=== PATIENT | male | born 1995 | race Caucasian/White ===

== ENCOUNTER 2019-07-26 12:24 | Emergency (ER) | payer SELFPAY ==
[2019-07-26 12:28] VITALS: BP 148/81; PULSE 95; RESP 20; TEMP 36.6; O2SAT 94; BMI 21.1
[2019-07-26 12:46] VITALS: BP 127/77; PULSE 74; RESP 16; TEMP 36.9; O2SAT 98; BMI 23.1
--- NOTE | 2019-07-26 12:57 | ED_ITS ---
Entered by Dacia Sahni, acting as scribe for HPI - Male Genitourinary General Chief complaint: Urogenital-Male Stated complaint: urinating blood Time Seen by Provider: 07/26/19 12:57 Source: patient Mode of arrival: ambulatory History of Present Illness HPI Narrative: 23 yo m came to the er pov with family fro blood in urine. Onset was this morning. Pt states that when he is just urinating straight blood. Pt is denying any pain while urinating at this time. Onset (ago): hour(s) (0900AM) Duration: constant Radiation: left flank Severity: mild Quality: other (no pain) Relieving factors: none Exacerbating factors: none Context: known STD exposure Associated symptoms: Reports hematuria Related Data Sexually active: Yes Home Medications Medication Instructions Recorded Confirmed No Known Home Medications 07/26/19 07/26/19 Allergies Allergy/AdvReac Type Severity Reaction Status Date / Time codeine Allergy ADR-Nausea Verified 07/26/19 12:53 tramadol [From Ultram] Allergy ALGY-Hives Verified 07/26/19 12:53 Discharge Plan Discharge Patient Disposition: Left Against Medical Advice Clinical Impression: Urethritis Condition: Stable Prescriptions: No Action No Known Home Medications RF: 0 Referrals: NOT ON FILE,DOCTOR [Primary Care Provider] - Discharge Date/Time: 07/26/19 14:13 MDM - Male Lab Data Result diagrams: 07/26/19 13:37 07/26/19 13:37 Labs: Lab Results 07/26/19 07/26/19 07/26/19 Range/Units 13:37 13:37 13:45 WBC 7.4 (4.0-10.0) 10^3/uL RBC 4.96 (4.1-5.3) 10^6/uL Hgb 14.3 (11.7-16.6) g/dL Hct 43.1 (42.0-52.0) % MCV 86.9 (80-94) fL MCH 28.8 (28.0-34.0) pg MCHC 33.2 (30.0-36.0) g/dL RDW 12.2 (12.1-15.1) % Plt Count 298 (130-400) 10^3/cmm MPV 9.1 (7.4-10.4) fL Neut % (Auto) 62.6 % Lymph % (Auto) 23.0 % [place] % (Auto) 12.5 % Eos % (Auto) 1.1 % Baso % (Auto) 0.5 % Neut # (Auto) 4.6 (1.8-7.7) 10^3/uL Lymph # (Auto) 1.7 (0.8-4.8) 10^3/uL [place] # (Auto) 0.9 (0.2-0.9) 10^3/uL Eos # (Auto) 0.1 (0.0-0.8) 10^3/uL Baso # (Auto) 0.0 (0.0-0.1) 10^3/uL Nucleated RBC % (auto) 0 % Nucleated RBCs # 0.0 /100WBC Sodium 138 (136-145) mmol/L Potassium 4.0 (3.5-5.1) mmol/L Chloride 99 (98-107) mmol/L Carbon Dioxide 28 (22-29) mmol/L Anion Gap 15.0 (5-19) BUN 10 (6-20) mg/dL Creatinine 1.0 (0.7-1.2) mg/dL GFR Calculation 91.8 (90-130) mL/min Glucose 81 (74-109) mg/dL Calcium 9.7 (8.6-10.0) mg/Dl Total Bilirubin 0.3 (0.15-1.2) mg/dL AST 18 (0-40) U/L ALT 15 (0-41) U/L Alkaline Phosphatase 92 (40-130) IU/L Total Protein 7.4 (6.6-8.7) g/dL Albumin 4.9 (3.5-5.2) g/dL Globulin 2.5 (1.3-4.6) g/dL Urine Color Straw (Yellow) Urine Appearance Clear (CLEAR) Urine pH 7.0 (5-7) Ur Specific [place] 1.005 (1.005-1.030) Urine Protein Neg (Negative) Urine Glucose (UA) Norm (Normal) Urine Ketones Negative (Negative) Urine Occult Blood Neg (Negative) Urine Nitrate Negative (Negative) Urine Bilirubin Neg (Negative) Urine Urobilinogen Norm (Negative) mg/dL Ur Leukocyte Esterase Negative (Negative) Urine RBC None (0-2) /hpf Urine WBC None (0-5) /hpf Ur Squamous Epith Cells Rare (0-5) Urine Bacteria Trace (NONE) The documentation recorded by the luz elenaibBora hoff Stephanie Lyn, accurately reflects the service I personally performed and the decisions made by , Gumaro Lanza, Jul 26, 2019 12:24
[2019-07-26 13:46] LABS: Basophils % 0.5 %; Eosinophils # 0.1 10^3/uL (0.0-0.8); Eosinophils % 1.1 %; Hematocrit 43.1 % (42.0-52.0); Hemoglobin 14.3 g/dL (11.7-16.6); Lymphocytes # 1.7 10^3/uL (0.8-4.8); Mean Corpuscular HGB Conc 33.2 g/dL (30.0-36.0); Mean Corpuscular Hemoglobin 28.8 pg (28.0-34.0); Mean Corpuscular Volume 86.9 fL (80-94); Mean Platelet Volume 9.1 fL (7.4-10.4); Monocytes # 0.9 10^3/uL (0.2-0.9); Monocytes % 12.5 %; Neutrophils # 4.6 10^3/uL (1.8-7.7); Neutrophils % 62.6 %; Nucleated Red Blood Cells % 0 %; Platelet Count 298 10^3/cmm (130-400); Red Blood Count 4.96 10^6/uL (4.1-5.3); Red Cell Distribution Width 12.2 % (12.1-15.1); White Blood Count 7.4 10^3/uL (4.0-10.0)
[2019-07-26 13:57] LABS: Add RBC Morph No
[2019-07-26 14:07] LABS: Alanine Aminotransferase 15 U/L (0-41); Albumin Level 4.9 g/dL (3.5-5.2); Alkaline Phosphatase 92 IU/L (40-130); Aspartate Amino Transferase 18 U/L (0-40); Blood Urea Nitrogen 10 mg/dL (6-20); Calcium 9.7 mg/Dl (8.6-10.0); Carbon Dioxide 28 mmol/L (22-29); Chloride 99 mmol/L (98-107); Globulin 2.5 g/dL (1.3-4.6); Glomerular Filtration Rate 91.8 mL/min (90-130); Glucose 81 mg/dL (74-109); Sodium 138 mmol/L (136-145); Total Bilirubin 0.3 mg/dL (0.15-1.2); Total Protein 7.4 g/dL (6.6-8.7)
[2019-07-26 14:12] LABS: Urine Appearance Clear (CLEAR); Urine Color Straw (Yellow)
[2019-07-26 14:13] LABS: Bilirubin Urine Neg (Negative); Blood Urine Neg (Negative); Glucose Urine UA Norm (Normal); Ketones Urine Negative (Negative); Leukocyte Esterase Urine Negative (Negative); Nitrate Urine Negative (Negative); Protein Urine Neg (Negative); Specific Gravity, Urine 1.005 (1.005-1.030); Urobilinogen Urine Norm (Negative)
[2019-07-26 14:19] LABS: Add Urine Culture? No; Bacteria Urine TRACE; Squamous Epithelial Cell Urine RARE (0-5)
--- NOTE | 2019-07-26 15:05 | W.ED.MALEGU ---
HPI - Male Genitourinary General Chief complaint: Urogenital-Male Stated complaint: urinating blood Time Seen by Provider: 07/26/19 12:57 Source: patient Mode of arrival: ambulatory History of Present Illness Severity: mild Quality: other (no pain) Relieving factors: none Exacerbating factors: none Related Data Sexually active: Yes Home Medications Medication Instructions Recorded Confirmed No Known Home Medications 07/26/19 07/26/19 Allergies Allergy/AdvReac Type Severity Reaction Status Date / Time codeine Allergy ADR-Nausea Verified 07/26/19 12:53 tramadol [From Ultram] Allergy ALGY-Hives Verified 07/26/19 12:53 Discharge Plan Discharge Patient Disposition: Left Against Medical Advice Clinical Impression: Urethritis Condition: Stable Prescriptions: No Action No Known Home Medications RF: 0 Referrals: NOT ON FILE,DOCTOR [Primary Care Provider] - Interventions: ED Discharge Assessment Last Done: 07/26/19 14:10 Discharge Date/Time: 07/26/19 14:13 MDM - Male Lab Data Result diagrams: 07/26/19 13:37 07/26/19 13:37 Labs: Lab Results 07/26/19 07/26/19 07/26/19 Range/Units 13:37 13:37 13:45 WBC 7.4 (4.0-10.0) 10^3/uL RBC 4.96 (4.1-5.3) 10^6/uL Hgb 14.3 (11.7-16.6) g/dL Hct 43.1 (42.0-52.0) % MCV 86.9 (80-94) fL MCH 28.8 (28.0-34.0) pg MCHC 33.2 (30.0-36.0) g/dL RDW 12.2 (12.1-15.1) % Plt Count 298 (130-400) 10^3/cmm MPV 9.1 (7.4-10.4) fL Neut % (Auto) 62.6 % Lymph % (Auto) 23.0 % [place] % (Auto) 12.5 % Eos % (Auto) 1.1 % Baso % (Auto) 0.5 % Neut # (Auto) 4.6 (1.8-7.7) 10^3/uL Lymph # (Auto) 1.7 (0.8-4.8) 10^3/uL [place] # (Auto) 0.9 (0.2-0.9) 10^3/uL Eos # (Auto) 0.1 (0.0-0.8) 10^3/uL Baso # (Auto) 0.0 (0.0-0.1) 10^3/uL Nucleated RBC % (auto) 0 % Nucleated RBCs # 0.0 /100WBC Sodium 138 (136-145) mmol/L Potassium 4.0 (3.5-5.1) mmol/L Chloride 99 (98-107) mmol/L Carbon Dioxide 28 (22-29) mmol/L Anion Gap 15.0 (5-19) BUN 10 (6-20) mg/dL Creatinine 1.0 (0.7-1.2) mg/dL GFR Calculation 91.8 (90-130) mL/min Glucose 81 (74-109) mg/dL Calcium 9.7 (8.6-10.0) mg/Dl Total Bilirubin 0.3 (0.15-1.2) mg/dL AST 18 (0-40) U/L ALT 15 (0-41) U/L Alkaline Phosphatase 92 (40-130) IU/L Total Protein 7.4 (6.6-8.7) g/dL Albumin 4.9 (3.5-5.2) g/dL Globulin 2.5 (1.3-4.6) g/dL Urine Color Straw (Yellow) Urine Appearance Clear (CLEAR) Urine pH 7.0 (5-7) Ur Specific [place] 1.005 (1.005-1.030) Urine Protein Neg (Negative) Urine Glucose (UA) Norm (Normal) Urine Ketones Negative (Negative) Urine Occult Blood Neg (Negative) Urine Nitrate Negative (Negative) Urine Bilirubin Neg (Negative) Urine Urobilinogen Norm (Negative) mg/dL Ur Leukocyte Esterase Negative (Negative) Urine RBC None (0-2) /hpf Urine WBC None (0-5) /hpf Ur Squamous Epith Cells Rare (0-5) Urine Bacteria Trace (NONE)
== END 2019-07-26 14:13 | disposition left against medical advice (07) ==
PROVIDERS: Emergency Provider Family Medicine
DX: N34.2 Other urethritis (principal); Z53.21 Procedure and treatment not carried out due to patient leaving prior to being seen by health care provider
CPT/HCPCS: 80053; 81001; 85025; 99282

== ENCOUNTER 2020-09-05 02:58 | Emergency (ER) | payer SELFPAY ==
[2020-09-05] VITALS (7 sets, daily range): BP systolic 111–138; BP diastolic 61–86; PULSE 72–106; RESP 18–24; TEMP 36.7; O2SAT 96–100; BMI 27.4
--- NOTE | 2020-09-05 04:02 | CTR_ITS ---
PROCEDURE INFORMATION: Exam: CT Abdomen And Pelvis With Contrast Exam date and time: 09/05/2020 4:09 AM Age: 24 years old Clinical indication: Nausea and vomiting; Abdominal pain; Generalized; Prior surgery; Surgery type: Appy. Inguinal hernia. ; Patient HX: Diffuse abd pain with n/v. TECHNIQUE: Imaging protocol: Computed tomography of the abdomen and pelvis with contrast. Radiation optimization: All CT scans at this facility use at least one of these dose optimization techniques: automated exposure control; mA and/or kV adjustment per patient size (includes targeted exams where dose is matched to clinical indication); or iterative reconstruction. Contrast material: VISI 320; Contrast volume: 95 ml; Contrast route: INTRAVENOUS (IV); COMPARISON: No relevant prior studies available. RADIATION DOSE METRICS: Total DLP (mGy-cm): 533.27 FINDINGS: Liver: Normal. No mass. Gallbladder and bile ducts: Normal. No calcified stones. No ductal dilation. Pancreas: Normal. No ductal dilation. Spleen: Normal. No splenomegaly. Adrenal glands: Normal. No mass. Kidneys and ureters: Normal. No hydronephrosis. Stomach and bowel: Distended colon is seen containing fluid content. No small bowel dilatation is present. No obstruction. No mucosal thickening. Appendix: The appendix is surgically absent. Intraperitoneal space: Unremarkable. No free air. No significant fluid collection. Vasculature: Unremarkable. No abdominal aortic aneurysm. Lymph nodes: Unremarkable. No enlarged lymph nodes. Urinary bladder: Unremarkable as visualized. Reproductive: Unremarkable as visualized. Bones/joints: Unremarkable. No acute fracture. Soft tissues: Unremarkable. CT/CT abdomen pelvis w con* [id number] IMPRESSION: Distended colon containing fluid content, usually seen with diarrheal conditions. No wall thickening or inflammation is identified. Radiation Dose CTDIVOL = (mGy): DLP = 533.27 (mGy-cm)
[2020-09-05] MEDS: sodium chloride 0.9% 1,000 ML 999 ML IV (04:10)
[2020-09-05] MEDS: iohexol 300 mg/mL 100 mL Btl IV (04:19)
[2020-09-05 04:30] LABS: Basophils % 0.3 %; Eosinophils # 0.1 10^3/uL (0.0-0.8); Eosinophils % 0.8 %; Hematocrit 44.3 % (42.0-52.0); Hemoglobin 14.9 g/dL (11.7-16.6); Lymphocytes # 1.6 10^3/uL (0.8-4.8); Mean Corpuscular HGB Conc 33.6 g/dL (30.0-36.0); Mean Corpuscular Volume 86.4 fL (80-94); Mean Platelet Volume 11.2 fL (7.4-10.4); Monocytes # 1.3 10^3/uL (0.2-0.9); Monocytes % 9.4 %; Neutrophils # 11.07 10^3/uL (1.8-7.7); Neutrophils % 78.2 %; Nucleated Red Blood Cells % 0 %; Platelet Count 241 10^3/cmm (130-400); Red Blood Count 5.13 10^6/uL (4.1-5.3); Red Cell Distribution Width 12.3 % (12.1-15.1); White Blood Count 14.2 10^3/uL (4.0-10.0)
[2020-09-05 04:42] LABS: Alanine Aminotransferase 11 U/L (0-41); Albumin Level 4.2 g/dL (3.5-5.2); Alcohol Level < 10 mg/dL (0-10); Alkaline Phosphatase 95 IU/L (40-130); Blood Urea Nitrogen 16 mg/dL (6-20); C Reactive Protein 39.8 mg/L (0.0-4.9); Calcium 8.8 mg/dL (8.5-10.5); Carbon Dioxide 27 mmol/L (22-29); Chloride 101 mmol/L (98-107); Creatine Phosphokinase 86 U/L (39-308); Globulin 3.3 g/dL (1.3-4.6); Glomerular Filtration Rate 102.8 mL/min (90-130); Glucose 104 mg/dL (65-115); Lipase 18 U/L (13-60); Magnesium 1.9 mg/dL (1.7-2.3); Osmolality Calculated 283 mOsm/kg (285-295); Sodium 136 mmol/L (136-145); Total Bilirubin 0.2 mg/dL (0.15-1.2); Total Protein 7.5 g/dL (6.6-8.7)
[2020-09-05 04:43] LABS: Aspartate Amino Transferase 17 U/L (0-40); Lactate (Lactic Acid level) 1.2 mmol/L (0.5-2.2)
--- NOTE | 2020-09-05 05:41 | ED_ITS ---
HPI - Abdominal Pain General: Chief Complaint: Abdominal Pain Stated Complaint: n/v/d Time Seen by Provider: 09/05/20 03:00 Source: patient Mode of arrival: ambulatory History of Present Illness: HPI narrative: 24-year-old male complaining of abdominal pain since yesterday morning, mainly on the right side. Associated with nausea, vomiting and diarrhea. Currently rating the pain is 8/10, crampy, no bloody stools. No fever. Able to tolerate some clears. Denies any alcohol or drug use. No sick contacts. No recent travel. MD elicited complaint: abdominal pain Pain Consistency: colicky Location: LUQ, RUQ and RLQ Severity: moderate Quality: cramping and aching Exacerbating factors: eating Relieving factors: bowel movement Context: possible food poisoning Review of Systems General: Reports: 10 or more systems reviewed and unremarkable except in HPI and below PFSH ED PFSH: Social History (Updated 01/30/20 @ 15:00 by Marky Marroquin LPN) Smoking and tobacco status: current every day smoker cigarettes Packs smoked per day: 1 Years cigarettes smoked: 10 and e-cigarettes E-Cigarette Details: e- cigarette and with nicotine E-cig/vape details: Use when regular cigarettes are not available. Quit status (tobacco): not considering quitting Second hand smoke exposure: Yes Smoking risk assessment/counseling performed?: No Current gender identity: Male Physical Exam Const: COMMON NORMALS: average body habitus and patient oriented x3 GENERAL APPEARANCE: cooperative, anxious and ill appearing HENMT: COMMON NORMALS: normocephalic and atraumatic HEAD & SCALP: normocephalic and atraumatic FACE & SINUS: normal facial exam and face symmetric MOUTH: other (Dry mucous membranes) TEETH & GINGIVA: Yes other Eye: COMMON NORMALS: Equal, round and reactive pupils present, EOMs intact bilaterally and negative for no scleral icterus PUPIL: Yes Equal, round and reactive pupils present Resp: COMMON NORMALS: normal respiratory effort and No retractions EFFORT & INSPECTION: Yes able to speak in complete sentences GI: COMMON NORMALS: Soft to palpation INSPECTION: Yes normal to inspection AUSCULTATION: Yes Hyperactive bowel sounds present PALPATION: Yes Soft to palpation, Yes Tenderness to palpation present (GI) Details: RLQ, LUQ and RUQ, No Guarding due to palpation present (GI), No Rigid due to palpation, No Hepatosplenomegaly present and No Ascites present : COMMON NORMALS: Yes no CVA tenderness BLADDER/KIDNEY EXAM: Yes no CVA tenderness MALE GROIN/PERINEUM EXAM: No edema Back/Pelvis: COMMON NORMALS: no CVA tenderness Extremity: COMMON NORMALS: normal to inspection, full ROM and capillary refill normal Neuro: COMMON NORMALS: patient oriented x3, CN's II-XII intact bilaterally and moves all extremities Skin: COMMON NORMALS: no rashes or lesions noted and no wounds GENERAL SKIN EXAM: no rashes or lesions noted Course Vital Signs: Vital signs: Vital Signs Temperature 98.1 F 09/05/20 03:04 Pulse Rate 95 09/05/20 04:26 Respiratory Rate 18 09/05/20 04:26 Blood Pressure 118/61 09/05/20 06:33 Pulse Oximetry 96 09/05/20 06:33 MDM - Abdominal Pain MDM Narrative: Medical decision making narrative: 24-year-old male with acute gastroenteritis Vital signs stable, nontoxic-appearing Mild leukocytosis, otherwise lab work without acute abnormalities. Lactic acid 1.2. Lipase normal. Treated with IV fluid, Zofran, Levsin, had good symptom relief, tolerating clears, at the time of discharge home was feeling and looking much better. Instructed to return immediately if he started running fever, had recurrent vomiting and could not keep down liquids, develop worsening pain, or any other Differential Diagnosis: Differential diagnosis abdominal pain: Likely abdominal pain, acute appendicitis, diverticulitis, gastroenteritis, pancreatitis and small bowel obstruction Medical Records: Attestation: I reviewed the patient's medical records. Lab Data: Attestation: I reviewed the patient's lab results. Labs: Lab Results 09/05/20 09/05/20 09/05/20 Range/Units 03:12 03:12 03:12 WBC 14.2 H (4.0-10.0) 10^3/ uL RBC 5.13 (4.1-5.3) 10^6/u L Hgb 14.9 (11.7-16.6) g/dL Hct 44.3 (42.0-52.0) % MCV 86.4 (80-94) fL MCH 29.0 (28.0-34.0) pg MCHC 33.6 (30.0-36.0) g/dL RDW 12.3 (12.1-15.1) % Plt Count 241 (130-400) 10^3/c mm MPV 11.2 H (7.4-10.4) fL Neut % (Auto) 78.2 % Lymph % (Auto) 11.0 % [place] % (Auto) 9.4 % Eos % (Auto) 0.8 % Baso % (Auto) 0.3 % Neut # (Auto) 11.07 H (1.8-7.7) 10^3/u L Lymph # (Auto) 1.6 (0.8-4.8) 10^3/u L [place] # (Auto) 1.3 H (0.2-0.9) 10^3/u L Eos # (Auto) 0.1 (0.0-0.8) 10^3/u L Baso # (Auto) 0.0 (0.0-0.1) 10^3/u L Nucleated RBC % (a uto) 0 % Nucleated RBCs # 0.0 /100WBC Sodium 136 (136-145) mmol/L Potassium 4.0 (3.5-5.1) mmol/L Chloride 101 (98-107) mmol/L Carbon Dioxide 27 (22-29) mmol/L Anion Gap 12.0 (5-19) BUN 16 (6-20) mg/dL Creatinine 0.9 (0.7-1.2) mg/dL GFR Calculation 102.8 (90-130) mL/min Glucose 104 (65-115) mg/dL Calculated Osmolal ity 283 L (285-295) mOsm/k g Lactate 1.2 (0.5-2.2) mmol/L Calcium 8.8 (8.5-10.5) mg/dL Magnesium 1.9 (1.7-2.3) mg/dL Total Bilirubin 0.2 (0.15-1.2) mg/dL AST 17 (0-40) U/L ALT 11 (0-41) U/L Alkaline Phosphata se 95 (40-130) IU/L Creatine Kinase 86 (39-308) U/L C-Reactive Protein 39.8 H (0.0-4.9) mg/L Total Protein 7.5 (6.6-8.7) g/dL Albumin 4.2 (3.5-5.2) g/dL Globulin 3.3 (1.3-4.6) g/dL Lipase 18 (13-60) U/L Urine Color (Yellow) Urine Appearance (CLEAR) Urine pH (5-7) Ur Specific Gravit y (1.005-1.030) Urine Protein (Negative) Urine Glucose (UA) (Normal) Urine Ketones (Negative) Urine Blood (Negative) Urine Nitrate (Negative) Urine Bilirubin (Negative) Urine Urobilinogen (Negative) mg/dL Ur Leukocyte Brgiid ase (Negative) Urine RBC (0-2) /hpf Urine WBC (0-5) /hpf Ur Squamous Epith Cells (0-5) /hpf Amorphous Sediment Urine Bacteria (NONE) /hpf Ethyl Alcohol < 10 (0-10) mg/dL 09/05/20 Range/Units 06:32 WBC (4.0-10.0) 10^3/ uL RBC (4.1-5.3) 10^6/u L Hgb (11.7-16.6) g/dL Hct (42.0-52.0) % MCV (80-94) fL MCH (28.0-34.0) pg MCHC (30.0-36.0) g/dL RDW (12.1-15.1) % Plt Count (130-400) 10^3/c mm MPV (7.4-10.4) fL Neut % (Auto) % Lymph % (Auto) % [place] % (Auto) % Eos % (Auto) % Baso % (Auto) % Neut # (Auto) (1.8-7.7) 10^3/u L Lymph # (Auto) (0.8-4.8) 10^3/u L [place] # (Auto) (0.2-0.9) 10^3/u L Eos # (Auto) (0.0-0.8) 10^3/u L Baso # (Auto) (0.0-0.1) 10^3/u L Nucleated RBC % (a uto) % Nucleated RBCs # /100WBC Sodium (136-145) mmol/L Potassium (3.5-5.1) mmol/L Chloride (98-107) mmol/L Carbon Dioxide (22-29) mmol/L Anion Gap (5-19) BUN (6-20) mg/dL Creatinine (0.7-1.2) mg/dL GFR Calculation (90-130) mL/min Glucose (65-115) mg/dL Calculated Osmolal ity (285-295) mOsm/k g Lactate (0.5-2.2) mmol/L Calcium (8.5-10.5) mg/dL Magnesium (1.7-2.3) mg/dL Total Bilirubin (0.15-1.2) mg/dL AST (0-40) U/L ALT (0-41) U/L Alkaline Phosphata se (40-130) IU/L Creatine Kinase (39-308) U/L C-Reactive Protein (0.0-4.9) mg/L Total Protein (6.6-8.7) g/dL Albumin (3.5-5.2) g/dL Globulin (1.3-4.6) g/dL Lipase (13-60) U/L Urine Color Yellow (Yellow) Urine Appearance Clear (CLEAR) Urine pH 5 (5-7) Ur Specific Gravit y 1.005 (1.005-1.030) Urine Protein 1+ H (Negative) Urine Glucose (UA) Norm (Normal) Urine Ketones Negative (Negative) Urine Blood Neg (Negative) Urine Nitrate Negative (Negative) Urine Bilirubin 1+ H (Negative) Urine Urobilinogen Norm (Negative) mg/dL Ur Leukocyte Brigid ase Negative (Negative) Urine RBC None (0-2) /hpf Urine WBC None (0-5) /hpf Ur Squamous Epith Cells None (0-5) /hpf Amorphous Sediment Not Reportable Urine Bacteria Trace (NONE) /hpf Ethyl Alcohol (0-10) mg/dL Discharge Plan Discharge Patient Disposition: Home Clinical Impression: Gastroenteritis, Abdominal pain Condition: Stable Discharge Orders: Discharge ED (Routine); Ordered 09/05/20 Ordered By: Shahida Maxwell Discharge Diet: Advance as tolerated Discharge Activity: Increase activity as tolerated Patient Instructions: Gastroenteritis (ED), Abdominal Pain (ED) Activity Restrictions/Additional Instructions: Rest, try to drink small amounts of fluid frequently. Stop using drugs, especially marijuana and alcohol, as they both can cause severe stomach pain. Return immediately to the ER if you develop worsening stomach pain, if you cannot keep down liquids, you develop a fever, or have any other sudden changes. Try and schedule follow-up appoint with your primary care doctor in the next 2 to 3 days for recheck. Coding Level of Care Code ED Distribution [facility] Manager for Joann Lin
[2020-09-05] MEDS: ondansetron 2 mg/ML SDV 2 mL 4 MG IVP (05:48)
[2020-09-05] MEDS: hyoscyamine ODT 0.125 mg Tablet 0.25 MG PO (05:49)
[2020-09-05] MEDS: sodium chloride 0.9% 1,000 ML 30 ML IV (05:54)
--- NOTE | 2020-09-05 07:36 | PC.NURSE ---
nurse in room to discharge patient and pt has eloped prior to discharge. pt left with IV still intact. Police have been notified.
[2020-09-05 07:39] LABS: Add Urine Microscopic? YES; Bacteria Urine TRACE /hpf; Bilirubin Urine 1+ (Negative); Blood Urine Neg (Negative); Glucose Urine UA Norm (Normal); Ketones Urine Negative (Negative); Leukocyte Esterase Urine Negative (Negative); Nitrate Urine Negative (Negative); Protein Urine 1+ (Negative); Specific Gravity, Urine 1.005 (1.005-1.030); Urine Appearance Clear (CLEAR); Urine Color Yellow (Yellow); Urobilinogen Urine Norm (Negative); pH Urine 5 (5-7)
--- NOTE | 2020-09-05 08:33 | PC.NURSE ---
Patient returned IV removed at this time.
== END 2020-09-05 07:43 | disposition home or self-care (01) ==
PROVIDERS: Emergency Provider Family Medicine
DX: K52.9 Noninfective gastroenteritis and colitis, unspecified (principal); F17.210 Nicotine dependence, cigarettes, uncomplicated
CPT/HCPCS: 74177; 80053; 80307; 81001; 82550; 83605; 83690; 83735; 85025; 86140; 96361; 96374; 99283; J2405; J7030; Q9967

== ENCOUNTER 2021-05-09 04:13 | Emergency (ER) | payer SELFPAY ==
--- NOTE | 2021-05-09 04:15 | ED_ITS ---
Documented by User: Marky Rhodes MD 05/10/21 19:16 HPI - Fever General: Chief Complaint: Upper Respiratory Infection Stated Complaint: sick, high fever Time Seen by Provider: 05/09/21 04:15 History of Present Illness: HPI Narrative: Mr. Coe is a 25-year-old gentleman with significant past medical history of substance abuse who presents emergency department due to generalized malaise. 4 days ago he had subacute onset of mild shortness of breath, fevers, headache, left-sided chest pain, and fatigue. Since onset the symptoms have persisted. Overall the course has remained about the same. Intensity is moderate. No specific exacerbating or alleviating factors. He denies sick contacts. He has not been vaccinated against Covid. He also notes an episode of hematuria. Review of Systems General: Reports: 10 or more systems reviewed and unremarkable except in HPI and below PFSH ED PFSH: Social History Smoking and tobacco status: current every day smoker cigarettes Packs smoked per day: 1 Years cigarettes smoked: 10 and e-cigarettes E-Cigarette Details: e- cigarette and with nicotine E-cig/vape details: Use when regular cigarettes are not available. Quit status (tobacco): not considering quitting Second hand smoke exposure: Yes Smoking risk assessment/counseling performed?: No Current gender identity: Male Physical Exam Narrative: EXAM NARRATIVE: GENERAL/CONSTITUTIONAL -mildly ill-appearing. No acute distress. Eyes - PERRL, no conjunctival injection ENMT - Atraumatic external nose and ears. Moist mucous membranes NECK - supple. trachea midline CARDIOVASCULAR -tachycardic rate and regular RESPIRATORY -coarse to auscultation bilaterally. ABDOMEN/GI - Nontender/Nondistended. MSK - Extremities without obvious deformity or tenderness to palpation SKIN - Warm, Dry NEURO - alert and appropriately oriented. Moves all extremities equally. Course ED course: - Patient was seen and evaluated by me at bedside - Patient placed on cardiac monitors, IV access obtained - Initial evaluation notable for mildly ill appearance, mild tachycardia. -Symptom treatment ordered - Labs notable for no leukocytosis, procalcitonin negative, CRP elevated. - Imaging notable for no lobar consolidation -Urinalysis pending. Patient care signed out to Dr. Womack pending urinalysis given reported hematuria and likely discharge. Unfortunately the patient declined Covid testing, symptoms consistent with viral illness. Vital Signs: Vital signs: Vital Signs Temperature 98.6 F 05/09/21 04:33 Pulse Rate 95 05/09/21 04:37 Respiratory Rate 18 05/09/21 04:37 Blood Pressure 133/85 05/09/21 04:37 Pulse Oximetry 98 05/09/21 04:33 MDM - Fever Medical Records: Attestation: I reviewed the patient's medical records. Lab Data: Attestation: I reviewed the patient's lab results. Labs: Lab Results 05/09/21 05/09/21 05:20 05:20 WBC 9.5 10^3/uL 10^3/ uL (4.0-10.0) RBC 4.73 10^6/uL 10^6 /uL (4.1-5.3) Hgb 13.8 g/dL g/dL (11.7-16.6) Hct 39.6 % L % (42.0-52.0) MCV 83.7 fl fl (80-94) MCH 29.2 pg pg (28.0-34.0) MCHC 34.8 g/dL g/dL (30.0-36.0) RDW 12.0 % L % (12.1-15.1) Plt Count 243 10^3/cmm 10^3 /cmm (130-400) MPV 9.4 fL fL (7.4-10.4) Neut % (Auto) 72.5 % % Lymph % (Auto) 15.1 % % Cherry % (Auto) 11.3 % % Eos % (Auto) 0.6 % % Baso % (Auto) 0.3 % % Neut # (Auto) 6.89 10^3/uL 10^3 /uL (1.8-7.7) Lymph # (Auto) 1.4 10^3/uL 10^3/ uL (0.8-4.8) Cherry # (Auto) 1.1 10^3/uL H 10^ 3/uL (0.2-0.9) Eos # (Auto) 0.1 10^3/uL 10^3/ uL (0.0-0.8) Baso # (Auto) 0.0 10^3/uL 10^3/ uL (0.0-0.1) Nucleated RBC % (a uto) 0 % % Nucleated RBCs # 0.0 /100WBC /100W BC Sodium 135 mmol/L L mmol /L (136-145) Potassium 4.0 mmol/L mmol/L (3.5-5.1) Chloride 100 mmol/L mmol/L (98-107) Carbon Dioxide 25 mmol/L mmol/L (22-29) Anion Gap 14.0 (5-19) BUN 11 mg/dL mg/dL (6-20) Creatinine 0.8 mg/dL mg/dL (0.7-1.2) GFR Calculation 116.9 mL/min mL/m in (90-130) Glucose 103 mg/dL mg/dL (65-115) Calculated Osmolal ity 280 mOsm/kg L mOs m/kg (285-295) Calcium 8.5 mg/dL mg/dL (8.5-10.5) C-Reactive Protein 41.3 mg/L H mg/L (0.0-4.9) Procalcitonin 0.09 ng/mL ng/mL (0-0.5) EKG Data^: EKG 1: Attestation: I personally reviewed and interpreted this EKG as follows: EKG interpretation date: 05/09/21 EKG interpretation time: 05:45 Interpretation: Twelve-lead EKG shows a regular rhythm at a rate of 89. HI interval 139, QRS duration 98, QTc 378. Normal axis. Interpretation: Sinus rhythm. Discharge Plan Discharge Patient Disposition: Left Against Medical Advice Clinical Impression: Acute viral syndrome, Abdominal pain Condition: Stable Discharge Diet: Clear Liquid Discharge Activity: Resume usual activity Patient Instructions: Viral Syndrome (ED), Abdominal Pain (ED) Activity Restrictions/Additional Instructions: Return to the emergency room if your symptoms worsen. We are unable to fully fully evaluate your symptoms because you did chose to decline some of the recommended testing. If at any point you wish to reconsider and would like to have the testing completed you are welcome to return at any time. Sign Out Sign Out Data: Patient Sign Out occurred on 05/09/21 at 07:28. Patient's care was discussed, and care was transferred from to Noah Womack DO. Coding Level of Care Code [facility] Nurse for g Fwd Exam Comprehensive Documented by User: Noah Womack DO 05/09/21 07:57 HPI - Fever General: Chief Complaint: Upper Respiratory Infection Stated Complaint: sick, high fever Time Seen by Provider: 05/09/21 04:15 History of Present Illness: HPI Narrative: 25-year-old male presents to the emergency room complaining of fatigue cough myalgias mild shortness of breath for the last 4 days. He also has a left upper quadrant abdominal pain. He ought also mention to Dr. Willis when he was seen initially that he had some hematuria. He has had temps during the for those 4 days as well up to 103 at times. He has not previously been known to have Covid nor is he been vaccinated. Patient denies any diarrhea, denies any hematochezia or melena. He has not taken anything for his symptoms at home prior to arrival. MD elicited complaint: fever, malaise and weakness Onset (ago): day(s) (4) Exacerbating factors: nothing Relieving factors: nothing Associated symptoms: Reports abdominal pain, chills, cough, dysuria, headache(s), myalgias, nausea and night sweats; Deny flank pain, chest pain, confusion, diarrhea, extremity pain, nasal congestion, rash, rhinorrhea, short of breath, sinus pain, stiffness, sore throat, vomiting or weight loss Treatments prior to arrival fever: none Review of Systems Const: Reports: chills and night sweats ENMT: Denies: nasal congestion or sinus pain Card: Denies: chest pain Resp: Reports: dyspnea and non-productive cough; Denies: productive cough GI: Reports: abdominal pain and nausea; Denies: vomiting or diarrhea : Reports: dysuria; Denies: flank pain Musc: Denies: extremity pain Skin/Breast: Denies: rash or pruritus Neuro: Reports: headache(s); Denies: confusion PFSH ED PFSH: Social History Smoking and tobacco status: current every day smoker cigarettes Packs smoked per day: 1 Years cigarettes smoked: 10 and e-cigarettes E-Cigarette Details: e- cigarette and with nicotine E-cig/vape details: Use when regular cigarettes are not available. Quit status (tobacco): not considering quitting Second hand smoke exposure: Yes Smoking risk assessment/counseling performed?: No Current gender identity: Male Physical Exam Const: COMMON NORMALS: no acute distress GENERAL APPEARANCE: cooperative and comfortable ORIENTATION/CONSCIOUSNESS: Yes awake, Yes oriented to person, Yes oriented to place and Yes oriented to time HENMT: COMMON NORMALS: normocephalic, atraumatic and hearing grossly normal bilaterally HEAD & SCALP: normocephalic and atraumatic Neck/C-Spine: COMMON NORMALS: no JVD Resp: COMMON NORMALS: normal respiratory effort, No retractions, No use of accessory muscles and clear to auscultation bilaterally AUSCULTATION: clear to auscultation bilaterally Cardio: COMMON NORMALS: no JVD, regular rate, regular rhythm and No murmurs present (Cardio) RATE: regular rate RHYTHM: regular rhythm GI: COMMON NORMALS: No hepatosplenomegaly present AUSCULTATION: Yes normoactive bowel sounds PALPATION: Yes Tenderness to palpation present (GI) Details: LUQ, No Guarding due to palpation present (GI) and Yes No hepatosplenomegaly present Extremity: COMMON NORMALS: normal to inspection, capillary refill normal, no clubbing, cyanosis or edema, no calf tenderness and no pedal edema Neuro: SENSORIUM/ORIENTATION: Yes oriented to person, Yes oriented to place and Yes oriented to time Skin: COMMON NORMALS: no rashes or lesions noted GENERAL SKIN EXAM: no rashes or lesions noted Course Vital Signs: Vital signs: Vital Signs Temperature 98.6 F 05/09/21 04:33 Pulse Rate 95 05/09/21 04:37 Respiratory Rate 18 05/09/21 04:37 Blood Pressure 133/85 05/09/21 04:37 Pulse Oximetry 98 05/09/21 04:33 MDM - Fever MDM Narrative: Medical decision making narrative: Assumed care from Dr. Willis at change of shift. Seen and evaluated patient. Is complaining some left upper quadrant abdominal pain addition to fever he is quite diaphoretic he is actually sweated through his gown and alert lot of the bedding is soaked with sweat. He denies any shortness of breath or cough no diarrhea no dysuria urgency or frequency. He still has a left upper quadrant pain. I encouraged him to allow us to do further testing including a CT of the abdomen. Dr. Willis had ordered a Covid swab due to his fever and fatigue myalgias etc. I think that is appropriate however the patient is refusing because he believes Covid is made up disease. Patient is declining any further evaluation and wants to leave. I was unable to dissuade him of this. We will go ahead and have him sign out AGAINST MEDICAL ADVICE. Encouraged him to return at any time and we can complete evaluation if he will allow it. Lab Data: Labs: Lab Results 05/09/21 05/09/21 05:20 05:20 WBC 9.5 10^3/uL 10^3/ uL (4.0-10.0) RBC 4.73 10^6/uL 10^6 /uL (4.1-5.3) Hgb 13.8 g/dL g/dL (11.7-16.6) Hct 39.6 % L % (42.0-52.0) MCV 83.7 fl fl (80-94) MCH 29.2 pg pg (28.0-34.0) MCHC 34.8 g/dL g/dL (30.0-36.0) RDW 12.0 % L % (12.1-15.1) Plt Count 243 10^3/cmm 10^3 /cmm (130-400) MPV 9.4 fL fL (7.4-10.4) Neut % (Auto) 72.5 % % Lymph % (Auto) 15.1 % % Cherry % (Auto) 11.3 % % Eos % (Auto) 0.6 % % Baso % (Auto) 0.3 % % Neut # (Auto) 6.89 10^3/uL 10^3 /uL (1.8-7.7) Lymph # (Auto) 1.4 10^3/uL 10^3/ uL (0.8-4.8) Cherry # (Auto) 1.1 10^3/uL H 10^ 3/uL (0.2-0.9) Eos # (Auto) 0.1 10^3/uL 10^3/ uL (0.0-0.8) Baso # (Auto) 0.0 10^3/uL 10^3/ uL (0.0-0.1) Nucleated RBC % (a uto) 0 % % Nucleated RBCs # 0.0 /100WBC /100W BC Sodium 135 mmol/L L mmol /L (136-145) Potassium 4.0 mmol/L mmol/L (3.5-5.1) Chloride 100 mmol/L mmol/L (98-107) Carbon Dioxide 25 mmol/L mmol/L (22-29) Anion Gap 14.0 (5-19) BUN 11 mg/dL mg/dL (6-20) Creatinine 0.8 mg/dL mg/dL (0.7-1.2) GFR Calculation 116.9 mL/min mL/m in (90-130) Glucose 103 mg/dL mg/dL (65-115) Calculated Osmolal ity 280 mOsm/kg L mOs m/kg (285-295) Calcium 8.5 mg/dL mg/dL (8.5-10.5) C-Reactive Protein 41.3 mg/L H mg/L (0.0-4.9) Procalcitonin 0.09 ng/mL ng/mL (0-0.5) Discharge Plan Discharge Patient Disposition: Left Against Medical Advice Clinical Impression: Acute viral syndrome, Abdominal pain Condition: Stable Discharge Diet: Clear Liquid Discharge Activity: Resume usual activity Patient Instructions: Viral Syndrome (ED), Abdominal Pain (ED) Activity Restrictions/Additional Instructions: Return to the emergency room if your symptoms worsen. We are unable to fully fully evaluate your symptoms because you did chose to decline some of the recommended testing. If at any point you wish to reconsider and would like to have the testing completed you are welcome to return at any time. Sign Out Sign Out Data: Patient Sign Out occurred on 05/09/21 at 07:28. Patient's care was discussed, and care was transferred from to Noah Womack DO. Coding Level of Care Code [facility] Nurse for Joann Fwd Exam Comprehensive
[2021-05-09 04:33] VITALS: BP 133/85; PULSE 106; RESP 16; TEMP 37; O2SAT 98; BMI 25.2
[2021-05-09 04:37] VITALS: BP 133/85; PULSE 95; RESP 18
--- NOTE | 2021-05-09 04:39 | XRR_ITS ---
PROCEDURE INFORMATION: Exam: XR Chest Exam date and time: 05/09/2021 4:39 AM Age: 25 years old Clinical indication: Cough and fever; Patient HX: Cough with fever. ; Additional info: SOB TECHNIQUE: Imaging protocol: XR of the chest. Views: 1 view. COMPARISON: CT abdomen pelvis w con* [id number] 09/05/2020 4:30 AM FINDINGS: Lungs: No consolidation. Pleural spaces: Unremarkable. No pleural effusion. No pneumothorax. Heart/Mediastinum: No cardiomegaly. Bones/joints: No acute fracture. XR/XR chest 1V portable [id number] IMPRESSION: No acute findings. Radiation Dose CTDIVOL = (mGy): DLP = (mGy-cm)
--- NOTE | 2021-05-09 04:39 | ECG_ITS ---
[facility] Test Date: 2021-05-09 Pat Name: Delvin Coe Department: Room: Gender: Male Fowl Blood Tester: : 1995 Requested By: Marky Rhodes Order Number: [id number] Ruggiero MD: Val Shields M.D. Measurements Intervals [place] Rate: 89 P: 67 FL: 139 QRS: 37 QRSD: 98 T: 26 QT: 331 QTc: 404 Interpretive Statements SINUS RHYTHM No previous ECG available for comparison Electronically Signed On 05-09-2021 5:46:46 CDT by Val Shields M.D. [id number]
[2021-05-09] MEDS: ketorolac 30 mg/mL INJ 15 MG IVP (05:00)
[2021-05-09] MEDS: acetaminophen 500 mg Tablet 1000 MG PO (05:00)
[2021-05-09] MEDS: sodium chloride 0.9% 500 ML 999 ML IV (05:00)
[2021-05-09 05:37] LABS: Basophils % 0.3 %; Eosinophils # 0.1 10^3/uL (0.0-0.8); Eosinophils % 0.6 %; Hematocrit 39.6 % (42.0-52.0); Hemoglobin 13.8 g/dL (11.7-16.6); Lymphocytes # 1.4 10^3/uL (0.8-4.8); Lymphocytes % 15.1 %; Mean Corpuscular HGB Conc 34.8 g/dL (30.0-36.0); Mean Corpuscular Hemoglobin 29.2 pg (28.0-34.0); Mean Corpuscular Volume 83.7 fl (80-94); Mean Platelet Volume 9.4 fL (7.4-10.4); Monocytes # 1.1 10^3/uL (0.2-0.9); Monocytes % 11.3 %; Neutrophils # 6.89 10^3/uL (1.8-7.7); Neutrophils % 72.5 %; Nucleated Red Blood Cells % 0 %; Platelet Count 243 10^3/cmm (130-400); Red Blood Count 4.73 10^6/uL (4.1-5.3); White Blood Count 9.5 10^3/uL (4.0-10.0)
[2021-05-09 05:58] LABS: Blood Urea Nitrogen 11 mg/dL (6-20); C Reactive Protein 41.3 mg/L (0.0-4.9); Calcium 8.5 mg/dL (8.5-10.5); Carbon Dioxide 25 mmol/L (22-29); Chloride 100 mmol/L (98-107); Glomerular Filtration Rate 116.9 mL/min (90-130); Glucose 103 mg/dL (65-115); Osmolality Calculated 280 mOsm/kg (285-295); Sodium 135 mmol/L (136-145)
[2021-05-09 06:05] LABS: Procalcitonin 0.09 ng/mL (0-0.5)
== END 2021-05-09 07:59 | disposition left against medical advice (07) ==
PROVIDERS: Emergency Medicine; Emergency Provider Family Medicine
DX: B34.9 Viral infection, unspecified (principal); R10.12 Left upper quadrant pain; F17.210 Nicotine dependence, cigarettes, uncomplicated; F17.290 Nicotine dependence, other tobacco product, uncomplicated
CPT/HCPCS: 71045; 80048; 84145; 85025; 86140; 93005; 96374; 99283; J1885; J7040

== ENCOUNTER 2021-10-24 14:33 | Emergency (ER) | payer SELFPAY ==
[2021-10-24 14:41] VITALS: BP 124/78; PULSE 89; RESP 16; TEMP 36.8; O2SAT 98; BMI 25.2
--- NOTE | 2021-10-24 15:01 | CTR_ITS ---
PROCEDURE INFORMATION: Exam: CT Maxillofacial Without Contrast Exam date and time: 10/24/2021 3:32 PM Age: 25 years old Clinical indication: Other: Syncope TECHNIQUE: Imaging protocol: Computed tomography images of the face without contrast. Axial, coronal and sagittal reformatted images were created and reviewed. Radiation optimization: All CT scans at this facility use at least one of these dose optimization techniques: automated exposure control; mA and/or kV adjustment per patient size (includes targeted exams where dose is matched to clinical indication); or iterative reconstruction. COMPARISON: CT head wo con* [id number] 10/24/2021 3:29 PM RADIATION DOSE METRICS: Total DLP (mGy-cm): 744.34 FINDINGS: Orbital cavities: Orbits are normal. Globes are unremarkable. Bones/joints: No acute fracture. Paranasal sinuses: Minimal ethmoid mucosal thickening. Mild polypoid left greater than right maxillary sinus mucosal thickening. No air-fluid levels. Soft tissues: Unremarkable. Other findings: Poor dentition. CT/CT facial bones wo con* [id number] IMPRESSION: 1. No acute facial bone fracture. 2. Additional findings, as above.
--- NOTE | 2021-10-24 15:01 | CTR_ITS ---
PROCEDURE INFORMATION: Exam: CT Head Without Contrast Exam date and time: 10/24/2021 3:29 PM Age: 25 years old Clinical indication: Syncope and collapse; Additional info: Trauma, syncope TECHNIQUE: Imaging protocol: Computed tomography of the head without contrast. Axial, coronal and sagittal reformatted images were created and reviewed. Radiation optimization: All CT scans at this facility use at least one of these dose optimization techniques: automated exposure control; mA and/or kV adjustment per patient size (includes targeted exams where dose is matched to clinical indication); or iterative reconstruction. COMPARISON: No relevant prior studies available. RADIATION DOSE METRICS: Total DLP (mGy-cm): 931.53 FINDINGS: Brain: No CT evidence of acute intracranial hemorrhage or acute territorial infarction. No significant mass effect or midline shift. Basal cisterns patent. Cerebral ventricles: Normal in size and configuration. Probable cavum septum pellucidum cyst. Paranasal sinuses: Minimal ethmoid mucosal thickening. No fluid levels. Mastoid air cells: Grossly unremarkable. Bones/joints: No acute osseous abnormality. Soft tissues: Grossly unremarkable. CT/CT head wo con* [id number] IMPRESSION: 1. No CT evidence of acute intracranial pathology. 2. Additional findings, as above.
--- NOTE | 2021-10-24 15:02 | ECG_ITS ---
[facility] Test Date: 2021-10-24 Pat Name: Delvin Coe Department: Room: Gender: Male Contract Analyst: : 1995 Requested By: Autumn Rossi Order Number: [id number] Ruggiero MD: Jozef Mahoney M.D. Measurements Intervals [place] Rate: 82 P: 53 MD: 146 QRS: 38 QRSD: 94 T: 42 QT: 352 QTc: 411 Interpretive Statements SINUS RHYTHM Compared to ECG 05/09/2021 05:45:32 No significant changes Electronically Signed On 10-25-2021 11:36:16 CDT by Jozef Mahoney M.D. [id number]
--- NOTE | 2021-10-24 15:02 | XR_ITS ---
WS: [id number] Exam: XR chest 1V portable [id number] Date/Time of Exam: 10/24/2021 3:29 PM Reason For Exam: syncope Comparison 05/09/2021. Findings: The lungs are clear and fully expanded. Costophrenic angles are sharp. No infiltrates. Bronchovascula r relief appears normal. Cardiac silhouette is unremarkable. Bony elements are intact. XR/XR chest 1V portable [id number] IMPRESSION: Unremarkable chest radiograph.
--- NOTE | 2021-10-24 15:03 | W.ED.SYNCOPE ---
Documented by User: DI Eaton 10/25/21 07:07 HPI - Syncope General: Chief Complaint: Syncope Stated Complaint: numb extremeties and passing out Time Seen by Provider: 10/24/21 14:49 Source: patient Mode of arrival: ambulatory Limitations: no limitations History of Present Illness: Patient is a 25-year-old male who presents to ED today with a complaint of a syncopal episode. Patient states he has had syncopal episodes over the past 3 years. He states on a bad day he will have up to 7-8 episodes where he blacks out . Patient states prior to passing out he does feel like his vision gets foggy and he will sometimes feel a little dizzy. He denies chest pain, shortness of breath, palpitations prior to these episodes. He states that witnesses of these episodes have never endorsed seizure-like movements. He states length of time that he is unconscious for varies stating that sometimes bystanders can coax me out of it but other times, if left unattended, states he could lie on the floor for hours. Patient states following event he feels very weak and confused. Patient has never had any loss of bowel or bladder. Patient does report IV methamphetamine use and states on days that he uses he actually feels better and does not seem to have these episodes. He states on days that he does not use he feels like a zombie . Today while at work he was walking to the bathroom and the next thing I knew I was being woke up on the floor . He states he struck the right side of his face is having a headache. No neck or back pain. Patient has not had any evaluation for these previously stating I avoid hospitals like the [facility] . He reports episodes are not brought on by exertion. complaint: loss of consciousness Onset (ago): year(s) Description of event: post-event confusion Prodromal symptoms: vision changes and lightheaded Witnessed: Yes - by Bystander Context: illicit drug use Associated symptoms: Reports no associated symptoms and headache(s); Deny abdominal pain, chest pain, fever(s) or nausea Treatments prior to arrival: none Review of Systems Const: Denies: fever(s), chills, body aches, fatigue or malaise Eyes: Reports: change in vision (prior to episodes); Denies: blind spots, photophobia, eye discomfort or eye discharge ENMT: Denies: throat pain, odynophagia, nasal discharge or nasal congestion Card: Denies: chest pain, palpitations, irregular heart rhythm, edema, swelling of feet/ankles, syncope, pre-syncope, dyspnea on exertion, orthopnea, leg pain with exertion or acrocyanosis Resp: Denies: dyspnea, productive cough, wheezing, pain on inspiration, hemoptysis or chest congestion GI: Denies: abdominal pain, nausea, vomiting, heartburn or diarrhea : Denies: difficulty urinating or dysuria Musc: Denies: neck pain, back pain, extremity pain or joint pain Skin/Breast: Denies: rash Neuro: Reports: headache(s), dizziness (prior to episodes; none currently ) and confusion (following episodes-none currently); Denies: numbness in extremities, weakness in extremities, sensory changes, lack of coordination, difficulty walking, Slurred speech present or seizure-like activity PFSH ED PFSH: Social History Smoking and tobacco status: current every day smoker cigarettes Packs smoked per day: 1 Years cigarettes smoked: 10 and e-cigarettes E-Cigarette Details: e-cigarette and with nicotine E-cig/vape details: Use when regular cigarettes are not available. Quit status (tobacco): not considering quitting Second hand smoke exposure: Yes Smoking risk assessment/counseling performed?: No Current gender identity: Male Physical Exam Const: COMMON NORMALS: no acute distress, patient oriented x3, no limitations and alert GENERAL APPEARANCE: cooperative ORIENTATION/CONSCIOUSNESS: Yes awake, Yes oriented to person, Yes oriented to place and Yes oriented to time HENMT: COMMON NORMALS: normocephalic, atraumatic and Normal external nose present HEAD & SCALP: normal to inspection, normocephalic and atraumatic FACE & SINUS: other (TTP R maxillary region w/o deformity or crepitus) NOSE: Normal external nose present TEETH & GINGIVA: Yes poor dentition Eye: COMMON NORMALS: Equal, round and reactive pupils present and EOMs intact bilaterally GENERAL EYE: appearance normal, both eyes and all related structures PUPIL: Yes Equal, round and reactive pupils present Neck/C-Spine: COMMON NORMALS: full ROM CERVICAL SPINE: Yes cervical ROM normal, No pain with cervical ROM, No Cervical spine tenderness, No step off deformity and No Paracervical muscle tenderness Chest: COMMONS NORMALS: normal inspection of the chest and normal palpation of entire chest wall Resp: COMMON NORMALS: normal respiratory effort and clear to auscultation bilaterally AUSCULTATION: clear to auscultation bilaterally Cardio: COMMON NORMALS: regular rate and regular rhythm RATE: regular rate RHYTHM: regular rhythm Back/Pelvis: COMMON NORMALS: thoracic and lumbar spine normal to inspection, no thoracic nor lumbar tenderness and thoraco-lumbar ROM normal Extremity: COMMON NORMALS: normal to inspection GENERAL: Yes normal exam except as noted Neuro: CLYDE COMA SCALE: document GCS findings [place] coma scale eye opening: Spontaneous [place] coma scale verbal response: Orientated [place] coma scale motor response: Obey commands [place] coma scale total score: 15 COMMON NORMALS: patient oriented x3, CN's II-XII intact bilaterally, moves all extremities, no focal motor deficits, no sensory deficits noted and gait normal SENSORIUM/ORIENTATION: Yes alert, Yes oriented to person, Yes oriented to place and Yes oriented to time SPEECH: speech normal GAIT: Yes Normal gait present MOTOR EXAM: 5/5 motor strength present throughout Skin: COMMON NORMALS: no rashes or lesions noted GENERAL SKIN EXAM: no rashes or lesions noted TRAUMA: no lacerations or abrasions Course Vital Signs: Vital signs: Vital Signs Temperature 98.2 F 10/24/21 14:41 Pulse Rate 73 10/24/21 17:17 Respiratory Rate 15 10/24/21 17:17 Blood Pressure 128/71 10/24/21 17:17 Pulse Oximetry 99 10/24/21 17:17 MDM - Syncope Medical Decision Making Patient is a 25-year-old male here for recurrent syncopal episodes occurring over the past 3 years. He has never sought any form of medical evaluation for the syncopal episodes. Patient states he does get foggy vision and a little lightheaded prior to losing consciousness. He never complains of chest pain, shortness of breath, difficulty breathing, racing heart rate, or palpitations. He is an IV methamphetamine user and states he feels like he has more syncopal episodes on days he is not using. Certainly the possible etiology for his syncope is vast at this time. His work-up here is benign. Patient states he would like to follow-up with neurology to see if these could be seizure related. I think this is a good starting point. Case management referral has been placed. Return to ED precautions given. Offered to set patient up with PCP however he tells me again that he avoids hospitals as much as possible and would just like to follow-up with neurology at this time. Lab Data : 10/24/21 15:52 10/24/21 15:[address] 10/24/21 15: IMPRESSION: 1. No acute facial bone fracture. 2. Additional findings, as above. Head CT 10/24/21 15: IMPRESSION: 1. No CT evidence of acute intracranial pathology. 2. Additional findings, as above. Chest X-Ray 10/24/21 15:02 IMPRESSION: Unremarkable chest radiograph. Laboratory Results WBC 8.4 10^3/uL (4.0-10.0) 10/24/21 15:52 RBC 4.67 10^6/uL (4.1-5.3) 10/24/21 15:52 Hgb 13.7 g/dL (11.7-16.6) 10/24/21 15:52 Hct 40.4 % (42.0-52.0) L 10/24/21 15:52 MCV 86.5 fl (80-94) 10/24/21 15:52 MCH 29.3 pg (28.0-34.0) 10/24/21 15:52 MCHC 33.9 g/dL (30.0-36.0) 10/24/21 15:52 RDW 12.8 % (12.1-15.1) 10/24/21 15:52 Plt Count 304 10^3/cmm (130-400) 10/24/21 15:52 MPV 9.1 fL (7.4-10.4) 10/24/21 15:52 Neut % (Auto) 60.6 % 10/24/21 15:52 Lymph % (Auto) 29.3 % 10/24/21 15:52 Burke % (Auto) 7.8 % 10/24/21 15:52 Eos % (Auto) 1.8 % 10/24/21 15:52 Baso % (Auto) 0.4 % 10/24/21 15:52 Neut # (Auto) 5.08 10^3/uL (1.8-7.7) 10/24/21 15:52 Lymph # (Auto) 2.5 10^3/uL (0.8-4.8) 10/24/21 15:52 Burke # (Auto) 0.7 10^3/uL (0.2-0.9) 10/24/21 15:52 Eos # (Auto) 0.2 10^3/uL (0.0-0.8) 10/24/21 15:52 Baso # (Auto) 0.0 10^3/uL (0.0-0.1) 10/24/21 15:52 Nucleated RBC % (auto) 0 % 10/24/21 15:52 Nucleated RBCs # 0.0 /100WBC 10/24/21 15:52 Sodium 140 mmol/L (136-145) 10/24/21 15:52 Potassium 4.2 mmol/L (3.5-5.1) 10/24/21 15:52 Chloride 106 mmol/L (98-107) 10/24/21 15:52 Carbon Dioxide 22 mmol/L (22-29) 10/24/21 15:52 Anion Gap 16.2 (5-19) 10/24/21 15:52 BUN 13 mg/dL (6-20) 10/24/21 15:52 Creatinine 1.0 mg/dL (0.7-1.2) 10/24/21 15:52 GFR Calculation 90.3 mL/min (90-130) 10/24/21 15:52 Glucose 102 mg/dL (65-115) 10/24/21 15:52 Calculated Osmolality 290 mOsm/kg (285-295) 10/24/21 15:52 Lactic Acid 0.9 mmol/L (0.5-2.2) 10/24/21 15:52 Calcium 9.2 mg/dL (8.5-10.5) 10/24/21 15:52 Total Bilirubin 0.2 mg/dL (0.15-1.2) 10/24/21 15:52 AST 15 U/L (0-40) 10/24/21 15:52 ALT 10 U/L (0-41) 10/24/21 15:52 Alkaline Phosphatase 82 IU/L (40-130) 10/24/21 15:52 Creatine Kinase 87 U/L (39-308) 10/24/21 15:52 Troponin T Gen 5 ng/L 6 ng/L (0-15) 10/24/21 15:52 Total Protein 6.7 g/dL (6.6-8.7) 10/24/21 15:52 Albumin 4.4 g/dL (3.5-5.2) 10/24/21 15:52 Globulin 2.3 g/dL (1.3-4.6) 10/24/21 15:52 Discharge Plan Discharge Patient Disposition: Home Clinical Impression: Recurrent syncope Condition: Stable Prescriptions: No Action No Known Home Medications 0RF Discharge Orders: Discharge ED (Routine); Ordered 10/24/21 Ordered By: Autumn Rossi Coding Level of Care Code ED Supply Chain Engineer for Chg Fwd Exam Comprehensive Documented by User: Marky Rhodes MD 10/28/21 22:48 HPI - Syncope General: Chief Complaint: Syncope Stated Complaint: numb extremeties and passing out Time Seen by Provider: 10/24/21 14:49 PFSH ED PFSH: Social History Smoking and tobacco status: current every day smoker cigarettes Packs smoked per day: 1 Years cigarettes smoked: 10 and e-cigarettes E-Cigarette Details: e-cigarette and with nicotine E-cig/vape details: Use when regular cigarettes are not available. Quit status (tobacco): not considering quitting Second hand smoke exposure: Yes Smoking risk assessment/counseling performed?: No Current gender identity: Male Physical Exam Neuro: CLYDE COMA SCALE: document GCS findings [place] coma scale total score: 15 Course Vital Signs: Vital signs: Vital Signs Temperature 98.2 F 10/24/21 14:41 Pulse Rate 73 10/24/21 17:17 Respiratory Rate 15 10/24/21 17:17 Blood Pressure 128/71 10/24/21 17:17 Pulse Oximetry 99 10/24/21 17:17 MDM - Syncope Medical Decision Making Patient is a 25-year-old male here for recurrent syncopal episodes occurring over the past 3 years. He has never sought any form of medical evaluation for the syncopal episodes. Patient states he does get foggy vision and a little lightheaded prior to losing consciousness. He never complains of chest pain, shortness of breath, difficulty breathing, racing heart rate, or palpitations. He is an IV methamphetamine user and states he feels like he has more syncopal episodes on days he is not using. Certainly the possible etiology for his syncope is vast at this time. His work-up here is benign. Patient states he would like to follow-up with neurology to see if these could be seizure related. I think this is a good starting point. Case management referral has been placed. Return to ED precautions given. Offered to set patient up with PCP however he tells me again that he avoids hospitals as much as possible and would just like to follow-up with neurology at this time. I reviewed his admission by DI Eaton. Marky Rhodes MD Emergency Medicine Lab Data : 10/24/21 15:52 10/24/21 15: Radiology Impressions Face CT 10/24/21: IMPRESSION: 1. No acute facial bone fracture. 2. Additional findings, as above. Head CT 10/24/21: IMPRESSION: 1. No CT evidence of acute intracranial pathology. 2. Additional findings, as above. Chest X-Ray 10/24/21: IMPRESSION: Unremarkable chest radiograph. Laboratory Results WBC 8.4 10^3/uL (4.0-10.0) 10/24/21 15: RBC 4.67 10^6/uL (4.1-5.3) 10/24/21 15: Hgb 13.7 g/dL (11.7-16.6) 10/24/21 15: Hct 40.4 % (42.0-52.0) L 10/24/21 15: MCV 86.5 fl (80-94) 10/24/21 15: MCH 29.3 pg (28.0-34.0) 10/24/21 15: MCHC 33.9 g/dL (30.0-36.0) 10/24/21 15: RDW 12.8 % (12.1-15.1) 10/24/21 15:52 Plt Count 304 10^3/cmm (130-400) 10/24/21 15:52 MPV 9.1 fL (7.4-10.4) 10/24/21 15:52 Neut % (Auto) 60.6 % 10/24/21 15:52 Lymph % (Auto) 29.3 % 10/24/21 15:52 Burke % (Auto) 7.8 % 10/24/21 15:52 Eos % (Auto) 1.8 % 10/24/21 15:52 Baso % (Auto) 0.4 % 10/24/21 15:52 Neut # (Auto) 5.08 10^3/uL (1.8-7.7) 10/24/21 15:52 Lymph # (Auto) 2.5 10^3/uL (0.8-4.8) 10/24/21 15:52 Burke # (Auto) 0.7 10^3/uL (0.2-0.9) 10/24/21 15:52 Eos # (Auto) 0.2 10^3/uL (0.0-0.8) 10/24/21 15:52 Baso # (Auto) 0.0 10^3/uL (0.0-0.1) 10/24/21 15:52 Nucleated RBC % (auto) 0 % 10/24/21 15:52 Nucleated RBCs # 0.0 /100WBC 10/24/21 15:52 Sodium 140 mmol/L (136-145) 10/24/21 15:52 Potassium 4.2 mmol/L (3.5-5.1) 10/24/21 15:52 Chloride 106 mmol/L (98-107) 10/24/21 15:52 Carbon Dioxide 22 mmol/L (22-29) 10/24/21 15:52 Anion Gap 16.2 (5-19) 10/24/21 15:52 BUN 13 mg/dL (6-20) 10/24/21 15:52 Creatinine 1.0 mg/dL (0.7-1.2) 10/24/21 15:52 GFR Calculation 90.3 mL/min (90-130) 10/24/21 15:52 Glucose 102 mg/dL (65-115) 10/24/21 15:52 Calculated Osmolality 290 mOsm/kg (285-295) 10/24/21 15:52 Lactic Acid 0.9 mmol/L (0.5-2.2) 10/24/21 15:52 Calcium 9.2 mg/dL (8.5-10.5) 10/24/21 15:52 Total Bilirubin 0.2 mg/dL (0.15-1.2) 10/24/21 15:52 AST 15 U/L (0-40) 10/24/21 15:52 ALT 10 U/L (0-41) 10/24/21 15:52 Alkaline Phosphatase 82 IU/L (40-130) 10/24/21 15:52 Creatine Kinase 87 U/L (39-308) 10/24/21 15:52 Troponin T Gen 5 ng/L 6 ng/L (0-15) 10/24/21 15:52 Total Protein 6.7 g/dL (6.6-8.7) 10/24/21 15:52 Albumin 4.4 g/dL (3.5-5.2) 10/24/21 15:52 Globulin 2.3 g/dL (1.3-4.6) 10/24/21 15:52 Discharge Plan Discharge Patient Disposition: Home Clinical Impression: Recurrent syncope Condition: Stable Prescriptions: No Action No Known Home Medications 0RF Discharge Orders: Discharge ED (Routine); Ordered 10/24/21 Ordered By: Autumn Rossi Coding Level of Care Code ED Supply Chain Engineer for Chg Fwd Exam Comprehensive
[2021-10-24 15:56] VITALS: BP 129/83; PULSE 80; RESP 18; O2SAT 97
[2021-10-24 15:58] LABS: Basophils % 0.4 %; Eosinophils # 0.2 10^3/uL (0.0-0.8); Eosinophils % 1.8 %; Hematocrit 40.4 % (42.0-52.0); Hemoglobin 13.7 g/dL (11.7-16.6); Lymphocytes # 2.5 10^3/uL (0.8-4.8); Lymphocytes % 29.3 %; Mean Corpuscular HGB Conc 33.9 g/dL (30.0-36.0); Mean Corpuscular Hemoglobin 29.3 pg (28.0-34.0); Mean Corpuscular Volume 86.5 fl (80-94); Mean Platelet Volume 9.1 fL (7.4-10.4); Monocytes # 0.7 10^3/uL (0.2-0.9); Monocytes % 7.8 %; Neutrophils # 5.08 10^3/uL (1.8-7.7); Neutrophils % 60.6 %; Nucleated Red Blood Cells % 0 %; Platelet Count 304 10^3/cmm (130-400); Red Blood Count 4.67 10^6/uL (4.1-5.3); Red Cell Distribution Width 12.8 % (12.1-15.1); White Blood Count 8.4 10^3/uL (4.0-10.0)
[2021-10-24 16:34] LABS: Troponin T (5th) Once 6 ng/L (0-15)
[2021-10-24 16:36] LABS: Lactic Sepsis W/Reflex 0.9 mmol/L (0.5-2.2)
[2021-10-24 16:43] LABS: Alanine Aminotransferase 10 U/L (0-41); Albumin Level 4.4 g/dL (3.5-5.2); Alkaline Phosphatase 82 IU/L (40-130); Anion Gap 16.2 (5-19); Aspartate Amino Transferase 15 U/L (0-40); Blood Urea Nitrogen 13 mg/dL (6-20); Calcium 9.2 mg/dL (8.5-10.5); Carbon Dioxide 22 mmol/L (22-29); Chloride 106 mmol/L (98-107); Creatine Phosphokinase 87 U/L (39-308); Globulin 2.3 g/dL (1.3-4.6); Glomerular Filtration Rate 90.3 mL/min (90-130); Glucose 102 mg/dL (65-115); Osmolality Calculated 290 mOsm/kg (285-295); Potassium 4.2 mmol/L (3.5-5.1); Sodium 140 mmol/L (136-145); Total Bilirubin 0.2 mg/dL (0.15-1.2); Total Protein 6.7 g/dL (6.6-8.7)
[2021-10-24 17:17] VITALS: BP 128/71; PULSE 73; RESP 15; O2SAT 99
--- NOTE | 2021-10-27 11:08 | DCPLANNER ---
Addendum entered by Mulu Carranza 12/19/21 17:52: Patient had a follow up appointment scheduled for 12.15.21 with neurology - patient did not attend appointment. Addendum entered by Mulu Carranza 10/28/21 14:38: Patient has a follow up appointment scheduled for Wednesday, December 15, 2021 at 10:[address] Baker. Clinic will contact patient with appointment information. Original Note: research laboratory manager had message to schedule a follow up appointment for patient with neurology. research laboratory manager sent patients information to the front staff at neurology thru workload messaging system. Patients information will be printed and reviewed. Clinic will call patient with appointment information.
== END 2021-10-24 17:16 | disposition home or self-care (01) ==
PROVIDERS: Emergency Provider Physician Assistant
DX: R55 Syncope and collapse (principal); F15.90 Other stimulant use, unspecified, uncomplicated; F17.210 Nicotine dependence, cigarettes, uncomplicated
CPT/HCPCS: 70450; 70486; 71045; 80053; 82550; 83605; 84484; 85025; 93005; 99283

== ENCOUNTER 2021-12-24 23:37 | Emergency (ER) | payer SELFPAY ==
[2021-12-24 23:45] VITALS: BP 127/88; PULSE 101; RESP 16; TEMP 36.7; O2SAT 98; BMI 22.2
--- NOTE | 2021-12-25 00:17 | ED_ITS ---
HPI - General Adult General: Chief complaint: General Medical Stated complaint: R arm swollen Time Seen by Provider: 12/24/21 23:39 History of Present Illness: 26-year-old male patient comes in with some redness along the right cephalic vein. Patient is IV drug user and last injected this morning. Patient also had previously injected more distally a couple of days ago. On exam he has redness starting at the wrist with streaking following up the cephalic vein to the axilla. Patient denies any fever, patient appears nontoxic. Patient reports no chest pain. Associated symptoms: Deny chest pain or dyspnea Review of Systems General: Reports: 10 or more systems reviewed and unremarkable except in HPI and below Const: Denies: fever(s) Card: Denies: chest pain Resp: Denies: dyspnea Skin/Breast: Reports: erythema PFSH ED PFSH: Social History Smoking and tobacco status: current every day smoker cigarettes Packs smoked per day: 1 Years cigarettes smoked: 10 and e-cigarettes E-Cigarette Details: e- cigarette and with nicotine E-cig/vape details: Use when regular cigarettes are not available. Quit status (tobacco): not considering quitting Second hand smoke exposure: Yes Smoking risk assessment/counseling performed?: No Current gender identity: Male Physical Exam Const: COMMON NORMALS: alert Neck/C-Spine: COMMON NORMALS: full ROM and no JVD Resp: COMMON NORMALS: normal respiratory effort and clear to auscultation bilaterally AUSCULTATION: clear to auscultation bilaterally Cardio: COMMON NORMALS: no JVD, regular rate and regular rhythm RATE: regular rate RHYTHM: regular rhythm Extremity: RIGHT UPPER EXTREMITY: Yes lower arm (Erythema to the arm following the cephalic vein to axilla) Neuro: SENSORIUM/ORIENTATION: Yes alert Course Vital Signs: Vital signs: Vital Signs Temperature 98.1 F 12/24/21 23:45 Pulse Rate 101 H 12/24/21 23:45 Respiratory Rate 16 12/24/21 23:45 Blood Pressure 127/88 12/24/21 23:45 Pulse Oximetry 98 12/24/21 23:45 [facility] - General Adult Medical Decision Making Patient comes in for concerns of redness after injection with methamphetamines. On exam patient has normal range of motion of the extremity. Mild tenderness is noted to palpation of the area of redness. I am able to track the cephalic vein up to the axilla. Distal pulses are intact. No significant swelling is noted to the extremity. Differential diagnosis includes phlebitis, thrombophlebitis, DVT, cellulitis. We will go ahead and treat for infection with Bactrim DS. Recommended NSAIDs for further inflammation. Discussed need to return to the ER for worsening swelling and redness. Patient was encouraged to use warm moist p acks to the arm until redness resolves. Patient reported understanding of care plan need for follow-up or return to the ER. Discharge Plan Discharge Patient Disposition: Home Clinical Impression: Phlebitis Condition: Stable Prescriptions: New Bactrim DS 800-160 mg tablet 1 tab PO BID 7 Days Qty: 14 0RF Discharge Orders: Discharge ED (Routine); Ordered 12/25/21 Ordered By: Adalberto Goode Discharge Diet: Usual diet Discharge Activity: Increase activity as tolerated Patient Instructions: Phlebitis (ED) Activity Restrictions/Additional Instructions: Use warm moist packs to the area of swelling and redness. Take antibiotics as directed. Use acetaminophen or ibuprofen for pain and inflammation. Follow-up with primary care for further instruction. Return to the ER for worsening symptoms or new concerns. Coding Level of Care Code ED Manager Android for Joann Lin
[2021-12-25] MEDS: sulfamethoxazole-trimeth DS 160-800 mg Tablet 1 TAB PO (00:31)
== END 2021-12-25 00:32 | disposition home or self-care (01) ==
PROVIDERS: Emergency Provider Nurse Practitioner Family
DX: I80.8 Phlebitis and thrombophlebitis of other sites (principal); F15.10 Other stimulant abuse, uncomplicated
CPT/HCPCS: 99283

== ENCOUNTER 2022-04-10 20:50 | Emergency (ER) | payer SELFPAY ==
[2022-04-10 20:54] VITALS: BP 121/81; PULSE 99; RESP 16; TEMP 36.7; O2SAT 98
--- NOTE | 2022-04-10 21:05 | ED_ITS ---
HPI - Seizure General: Chief Complaint: Seizure Stated Complaint: Carlos, States a siezure, Hit head Time Seen by Provider: 04/10/22 21:04 Limitations: altered mental status History of Present Illness: HPI Narrative: Mr. Coe is a 26-year-old gentleman with history of substance abuse and reported history of seizure disorder who presents to the emergency department due to altered mental status after seizure. History is provided by friend at bedside. He appears confused and possibly postictal which limits his ability to provide history. She has known him approximately 5 years and during this time he has seizures which are more typically staring spells where he is unresponsive. These occur a few times per week. Additionally he has occasionally had convulsive seizures. He was at his baseline health earlier today and had unwitnessed event where he collapsed next to a car and was shaking concerning for generalized seizure. He is not on antiepileptic medication, she reports history of trying 1 but apparently it made him worse . He does not typically see doctors. History otherwise limited by mental status. Currently trying to quit IV use of methamphetamines. Review of Systems General: Reports: ROS unobtainable due to mental status PFS ED PFSH: Social History Smoking and tobacco status: current every day smoker cigarettes Packs smoked per day: 1 Years cigarettes smoked: 10 and e-cigarettes E-Cigarette Details: e- cigarette and with nicotine E-cig/vape details: Use when regular cigarettes are not available. Quit status (tobacco): not considering quitting Second hand smoke exposure: Yes Smoking risk assessment/counseling performed?: No Current gender identity: Male Physical Exam Const: GENERAL APPEARANCE: well developed OTHER: Somnolent but awakes to painful stimuli HENMT: COMMON NORMALS: normocephalic and atraumatic HEAD & SCALP: normocephalic and atraumatic OTHER: No sheridan signs or raccoon eyes. No otorrhea or rhinorrhea. Jaw alignment normal. Dentition baseline. No obvious bony step-offs. No septal hematoma. No evidence of ocular entrapment. Eye: COMMON NORMALS: conjunctivae normal CONJUNCTIVA: Yes conjunctivae normal SCLERA: sclerae normal Neck/C-Spine: COMMON NORMALS: supple GENERAL: Yes trachea midline Resp: COMMON NORMALS: normal respiratory effort and clear to auscultation bilaterally EFFORT & INSPECTION: Yes able to speak in complete sentences AUSCULTATION: clear to auscultation bilaterally Cardio: COMMON NORMALS: regular rate and regular rhythm RATE: regular rate RHYTHM: regular rhythm GI: COMMON NORMALS: Soft to palpation PALPATION: Yes Soft to palpation and No Tenderness to palpation present (GI) Extremity: GENERAL: Yes normal exam except as noted and No edema Neuro: COMMON NORMALS: moves all extremities SENSORIUM/ORIENTATION: Yes Orientation impaired and Yes somnolent Skin: NARRATIVE SKIN EXAM: Mildly erythematous indurated region without fluctuance or drainage to the left posterior hand on the radial aspect. No concerning features for deep infection or emergent surgical condition. Numerous tattoos Course ED course: - Patient was seen and evaluated by me at bedside - Patient placed on cardiac monitors, IV access obtained - Initial evaluation notable for exam as above. - Labs and xrays personally interpreted by me. EKG shows sinus rhythm with no STEMI -IV fluids given - Labs notable for no leukocytosis, normal hemoglobin. Metabolic panel without acute derangement to explain symptoms. UDS positive for opioids, amphetamines, benzodiazepines, THC, toxic ingestions otherwise negative. - Imaging notable for no lobar consolidation or pneumothorax. CT head without acute intracranial abnormality to explain symptoms. - Upon serial reexamination after treatment the patient was significantly improved with normalization of mental status and no focal neurologic deficits appreciated. Patient able to ambulate. - Based on patient history, evaluation, and testing as interpreted the most likely cause of the patient's condition is unclear. Certainly the patient's history is concerning for underlying seizure disorder though picture is less clear in the context of polysubstance abuse. I will rerefer patient for outpatient follow-up with neurology. In addition I will initiate Keppra, the patient does report an intolerance due to not liking the feeling it gave him to a medication in the past however is unsure of what medication that was. - The results of ED evaluation were discussed with the patient including prescriptions and/or symptomatic cares (if applicable) including appropriate and responsible use, followup plan, and return precautions. The patient verbalized understanding and felt safe for discharge. - Patient discharged in satisfactory condition. Note: Click bubbles or prepopulated sparks in note writing are used for assistance with data collection and billing and are inherently more limited than narrative and other text portions of this note. Please use narrative for additional clinical history and defer to narrative/free test for any case of contradictory information. If information appears in only free text or click bubble it sophie uld be considered present or absent as reported. Please contact note investment underwriter for clarifications of clinical information or contradictory information. MDM is a brief summary, contradictory or erroneous seeming information should be clarified and full note should be reviewed. Vital Signs: Vital signs: Vital Signs Temperature 98.0 F 04/10/22 20:54 Pulse Rate 76 04/11/22 01:47 Respiratory Rate 16 04/11/22 01:47 Blood Pressure 114/69 04/11/22 01:47 Pulse Oximetry 97 04/11/22 01:47 Oxygen Delivery Me thod 04/11/22 00:00 MDM - Seizure MDM Narrative Medical decision making narrative: 26-year-old male with perhaps history of seizures presenting with unwitnessed seizure activity found down and initially appearing postictal. Mental status improved. Clinical picture complicated by polysubstance abuse. Given improvement and ED evaluation patient is satisfactory for outpatient management. Medical Records Attestation: I reviewed the patient's medical records. Lab Data Attestation: I reviewed the patient's lab results. Result diagrams: 04/10/22 21:16 04/10/22 22:01 Labs: Radiology Impressions Chest X-Ray 04/10/22 21:09 IMPRESSION: No acute findings. Head CT 04/10/22 21:09 IMPRESSION: No acute intracranial abnormality. Laboratory Results WBC 8.3 10^3/uL (4.0-10.0) 04/10/22 21:16 RBC 4.73 10^6/uL (4.1-5.3) 04/10/22 21:16 Hgb 14.1 g/dL (11.7-16.6) 04/10/22 21:16 Hct 41.6 % (42.0-52.0) L 04/10/22 21:16 MCV 87.9 fl (80-94) 04/10/22 21:16 MCH 29.8 pg (28.0-34.0) 04/10/22 21:16 MCHC 33.9 g/dL (30.0-36.0) 04/10/22 21:16 RDW 12.3 % (12.1-15.1) 04/10/22 21:16 Plt Count 295 10^3/cmm (130-400) 04/10/22 21:16 MPV 9.4 fL (7.4-10.4) 04/10/22 21:16 Neut % (Auto) 57.5 % 04/10/22 21:16 Lymph % (Auto) 30.9 % 04/10/22 21:16 [place] % (Auto) 8.5 % 04/10/22 21:16 Eos % (Auto) 2.2 % 04/10/22 21:16 Baso % (Auto) 0.7 % 04/10/22 21:16 Neut # (Auto) 4.76 10^3/uL (1.8-7.7) 04/10/22 21:16 Lymph # (Auto) 2.6 10^3/uL (0.8-4.8) 04/10/22 21:16 [place] # (Auto) 0.7 10^3/uL (0.2-0.9) 04/10/22 21:16 Eos # (Auto) 0.2 10^3/uL (0.0-0.8) 04/10/22 21:16 Baso # (Auto) 0.1 10^3/uL (0.0-0.1) 04/10/22 21:16 Nucleated RBC % (auto) 0 % 04/10/22 21:16 Nucleated RBCs # 0.0 /100WBC 04/10/22 21:16 Sodium 141 mmol/L (136-145) 04/10/22 22:01 Potassium 3.8 mmol/L (3.5-5.1) 04/10/22 22:01 Chloride 105 mmol/L (98-107) 04/10/22 22:01 Carbon Dioxide 28 mmol/L (22-29) 04/10/22 22:01 Anion Gap 11.8 (5-19) 04/10/22 22:01 BUN 13 mg/dL (6-20) 04/10/22 22:01 Creatinine 1.0 mg/dL (0.7-1.2) 04/10/22 22:01 GFR Calculation 89.6 mL/min (90-130) L 04/10/22 22:01 Glucose 126 mg/dL (65-115) H 04/10/22 22:01 Calculated Osmolality 294 mOsm/kg (285-295) 04/10/22 22:01 Calcium 8.5 mg/dL (8.5-10.5) 04/10/22 22:01 Total Bilirubin 0.2 mg/dL (0.15-1.2) 04/10/22 22:01 AST 9 U/L (0-40) 04/10/22 22:01 ALT 8 U/L (0-41) 04/10/22 22:01 Alkaline Phosphatase 77 U/L (40-130) 04/10/22 22:01 Creatine Kinase 68 U/L (39-308) 04/10/22 22:01 Total Protein 6.2 g/dL (6.6-8.7) L 04/10/22 22:01 Albumin 3.5 g/dL (3.5-5.2) 04/10/22 22:01 Globulin 2.7 g/dL (1.3-4.6) 04/10/22 22:01 TSH 2.44 uIU/mL (0.27-4.20) 04/10/22 22:01 Urine Color Yellow (Yellow) 04/10/22 23:58 Urine Appearance Clear (CLEAR) 04/10/22 23:58 Urine pH 6.5 (5-7) 04/10/22 23:58 Ur Specific [place] 1.015 (1.005-1.030) 04/10/22 23:58 Urine Protein Neg (Negative) 04/10/22 23:58 Urine Glucose (UA) Norm (Normal) 04/10/22 23:58 Urine Ketones Negative (Negative) 04/10/22 23:58 Urine Blood Neg (Negative) 04/10/22 23:58 Urine Nitrate Negative (Negative) 04/10/22 23:58 Urine Bilirubin Neg (Negative) 04/10/22 23:58 Urine Urobilinogen 1 mg/dL (Negative) H 04/10/22 23:58 Ur Leukocyte Esterase Negative (Negative) 04/10/22 23:58 Salicylates < 0.3 mg/dL (3-10) L 04/10/22 22:01 Urine Opiates Screen Positive ng/mL (Negative) H 04/10/22 23:58 Acetaminophen < 5.0 ug/mL (10-30) L 04/10/22 22:01 Ur Barbiturates Screen Negative ng/mL (Negative) 04/10/22 23:58 Ur Phencyclidine Scrn Negative ng/mL (Negative) 04/10/22 23:58 Ur Amphetamines Screen Positive ng/mL (Negative) H 04/10/22 23:58 U Benzodiazepines Scrn Positive ng/mL (Negative) H 04/10/22 23:58 Urine Cocaine Screen Negative ng/mL (Negative) 04/10/22 23:58 U Marijuana (THC) Screen Positive ng/mL (Negative) H 04/10/22 23:58 Ethyl Alcohol < 10 mg/dL (0-10) 04/10/22 22:01 Discharge Plan Discharge Patient Disposition: Home Clinical Impression: Generalized seizure, Polysubstance abuse, Cellulitis of hand Condition: Stable Discharge Orders: Discharge ED (Routine); Ordered 04/11/22 Ordered By: Marky Rhodes Discharge Diet: Usual diet Discharge Activity: Limit activity as instructed Patient Instructions: Cellulitis (ED), Polysubstance Use Disorder (ED), Recurrent Seizures in Adults (ED) Activity Restrictions/Additional Instructions: Thank you for visiting the emergency department. You were seen and evaluated for altered mental status which may be related to other polysubstance abuse or seizure. I recommend stopping using drugs. Failure to stop using drugs will likely lead to or worse. Additionally I will refer you for neurology follow-up and start you on antiepileptic medication. For seizures do not drive or operate machinery for at least 6 months of seizure- free, do not cook over open flames, climb tall objects, swim in swimming pools, take a bath in a bathtub full of water, or otherwise perform tasks that would be dangerous if you were to have another seizure. Please establish with a primary care provider and follow-up with primary care provider. Return to the emergency department for worsening symptoms or anything else that you are concerned about a feel needs emergency department evaluation. Coding Level of Care Code ED Advertising Editor for Joann Fwhaydee Exam Comprehensive
--- NOTE | 2022-04-10 21:09 | CTR_ITS ---
PROCEDURE INFORMATION: Exam: CT Head Without Contrast Exam date and time: 04/10/2022 9:21 PM Age: 26 years old Clinical indication: Condition or disease; Convulsions or seizures; Patient HX: Reported seizure activity. Patient lethargic with pin point pupils; Additional info: AMS, ? seizures TECHNIQUE: Imaging protocol: Computed tomography of the head without contrast. Radiation optimization: All CT scans at this facility use at least one of these dose optimization techniques: automated exposure control; mA and/or kV adjustment per patient size (includes targeted exams where dose is matched to clinical indication); or iterative reconstruction. COMPARISON: CT head wo con* [id number] 10/24/2021 3:29 PM RADIATION DOSE METRICS: Total DLP (mGy-cm): 1122.58 FINDINGS: Brain: Normal. No hemorrhage. Unremarkable white matter. No mass effect. Cerebral ventricles: No ventriculomegaly. Paranasal sinuses: Visualized sinuses are unremarkable. No fluid levels. Mastoid air cells: Visualized mastoid air cells are well aerated. Bones/joints: Unremarkable. No acute fracture. Soft tissues: Unremarkable. CT/CT head wo con* [id number] IMPRESSION: No acute intracranial abnormality.
--- NOTE | 2022-04-10 21:09 | XRR_ITS ---
PROCEDURE INFORMATION: Exam: XR Chest Exam date and time: 04/10/2022 9:13 PM Age: 26 years old Clinical indication: Other: Seizure, AMS; Additional info: AMS, ? seizure TECHNIQUE: Imaging protocol: Radiologic exam of the chest. Views: 1 view. COMPARISON: CR XR chest 1V portable [id number] 10/24/2021 3:54 PM FINDINGS: Lungs: Unremarkable. No consolidation. Pleural spaces: Unremarkable. No pleural effusion. No pneumothorax. Heart/Mediastinum: Unremarkable. No cardiomegaly. Bones/joints: Unremarkable. XR/XR chest 1V portable [id number] IMPRESSION: No acute findings.
[2022-04-10 21:23] LABS: Basophils # 0.1 10^3/uL (0.0-0.1); Basophils % 0.7 %; Eosinophils # 0.2 10^3/uL (0.0-0.8); Eosinophils % 2.2 %; Hematocrit 41.6 % (42.0-52.0); Hemoglobin 14.1 g/dL (11.7-16.6); Lymphocytes # 2.6 10^3/uL (0.8-4.8); Lymphocytes % 30.9 %; Mean Corpuscular HGB Conc 33.9 g/dL (30.0-36.0); Mean Corpuscular Hemoglobin 29.8 pg (28.0-34.0); Mean Corpuscular Volume 87.9 fl (80-94); Mean Platelet Volume 9.4 fL (7.4-10.4); Monocytes # 0.7 10^3/uL (0.2-0.9); Monocytes % 8.5 %; Neutrophils # 4.76 10^3/uL (1.8-7.7); Neutrophils % 57.5 %; Nucleated Red Blood Cells % 0 %; Platelet Count 295 10^3/cmm (130-400); Red Blood Count 4.73 10^6/uL (4.1-5.3); Red Cell Distribution Width 12.3 % (12.1-15.1); White Blood Count 8.3 10^3/uL (4.0-10.0)
[2022-04-10] MEDS: lactated ringers 1,000 ML 999 ML IV (21:39)
[2022-04-10 22:43] VITALS: BP 110/58; PULSE 82; RESP 15; O2SAT 96
[2022-04-10 22:48] LABS: Alanine Aminotransferase 8 U/L (0-41); Albumin Level 3.5 g/dL (3.5-5.2); Alkaline Phosphatase 77 U/L (40-130); Anion Gap 11.8 (5-19); Aspartate Amino Transferase 9 U/L (0-40); Blood Urea Nitrogen 13 mg/dL (6-20); Calcium 8.5 mg/dL (8.5-10.5); Carbon Dioxide 28 mmol/L (22-29); Chloride 105 mmol/L (98-107); Creatine Phosphokinase 68 U/L (39-308); Globulin 2.7 g/dL (1.3-4.6); Glomerular Filtration Rate 89.6 mL/min (90-130); Glucose 126 mg/dL (65-115); Osmolality Calculated 294 mOsm/kg (285-295); Potassium 3.8 mmol/L (3.5-5.1); Sodium 141 mmol/L (136-145); Thyroid Stimulating Hormone 2.44 uIU/mL (0.27-4.20); Total Bilirubin 0.2 mg/dL (0.15-1.2); Total Protein 6.2 g/dL (6.6-8.7)
[2022-04-10 22:56] LABS: Acetaminophen < 5.0 ug/mL (10-30); Alcohol Level < 10 mg/dL (0-10); Salicylate < 0.3 mg/dL (3-10)
[2022-04-10 23:28] VITALS: BP 112/57; PULSE 77; RESP 14; O2SAT 97
[2022-04-11] VITALS: BP 110/63; PULSE 79; RESP 18; O2SAT 97
[2022-04-11 00:23] LABS: Add Urine Microscopic? NO; Charge for UA Resulting for Rev
[2022-04-11] MEDS: lactated ringers 1,000 ML 999 ML IV (00:28)
[2022-04-11 00:38] LABS: Bilirubin Urine Neg (Negative); Blood Urine Neg (Negative); Glucose Urine UA Norm (Normal); Ketones Urine Negative (Negative); Nitrate Urine Negative (Negative); Protein Urine Neg (Negative); Specific Gravity, Urine 1.015 (1.005-1.030); Urine Appearance Clear (CLEAR); Urine Color Yellow (Yellow); Urobilinogen Urine 1 mg/dL (Negative); pH Urine 6.5 (5-7)
[2022-04-11 00:39] LABS: Leukocyte Esterase Urine Negative (Negative)
[2022-04-11 00:45] LABS: Amphetamines Screen Urine Positive (Negative); Barbiturates Screen Urine Negative (Negative); Benzodiazepines Screen Urine Positive (Negative); Cocaine Screen Urine Negative (Negative); Opiate Screen Urine Positive (Negative); PCP Screen Urine Negative (Negative); THC Screen Urine Positive (Negative)
[2022-04-11 01:15] VITALS: BP 114/69; PULSE 76; RESP 16; O2SAT 97
[2022-04-11 01:47] VITALS: BP 114/69; PULSE 76; RESP 16; O2SAT 97
--- NOTE | 2022-04-13 11:47 | DCPLANNER ---
Addendum entered by Mulu Carranza 07/15/22 11:36: Patient had a follow up appointment scheduled with neurology - patient did not attend appointment. Addendum entered by Mulu Carranza 04/17/22 08:07: Patient has a follow up appointment scheduled for Friday September 02, 2022 at 8:[address] Baker at neurology. Clinic will call patient with appointment information. Original Note: manager dish had message to schedule a follow up appointment for patient with neurology. manager dish sent patients information to the front office staff at neurology. Patients information will be printed and reviewed. Clinic will call patient with appointment information.
== END 2022-04-11 01:49 | disposition home or self-care (01) ==
PROVIDERS: Emergency Provider Emergency Medicine
DX: R56.9 Unspecified convulsions (principal); L03.114 Cellulitis of left upper limb; F19.90 Other psychoactive substance use, unspecified, uncomplicated
CPT/HCPCS: 70450; 71045; 80053; 80306; 80307; 81003; 82550; 84443; 85025; 96360; 96361; 99285

== ENCOUNTER 2022-05-26 23:47 | Emergency (ER) | payer SELFPAY ==
[2022-05-26 23:49] VITALS: BP 131/87; PULSE 98; RESP 16; TEMP 36.1; O2SAT 99
--- NOTE | 2022-05-26 23:57 | ED_ITS ---
HPI - General Adult General: Chief complaint: General Medical Stated complaint: arm swollen Time Seen by Provider: 05/26/22 23:51 Source: patient Mode of arrival: ambulatory History of Present Illness: 26-year-old male who has had swelling to his left forearm over the last 2 weeks. He states he had some site pain he rates today. 10 denies any fever denies any no injuries he does have history of IV drug abuse states he has not used in roughly a month. Associated symptoms: Deny chest pain, dyspnea, headache(s), nausea, rash or vomiting Review of Systems Const: Denies: fever(s), chills, body aches or change in appetite Eyes: Denies: blurry vision or eye discomfort ENMT: Denies: throat pain or dental pain Card: Denies: chest pain Resp: Denies: dyspnea GI: Denies: abdominal pain, nausea, vomiting or diarrhea : Denies: dysuria Musc: Reports: extremity pain and extremity swelling Skin/Breast: Denies: rash Neuro: Denies: headache(s) Psych: Denies: depression Jeancarlos/Lymph: Denies: easy bruising All/Imm: Denies: urticaria PFS ED PFSH: Medical History (Updated 05/27/22 @ 02:14 by Ab Anderson MD) Methamphetamine use disorder, severe, dependence Social History Smoking and tobacco status: current every day smoker cigarettes Packs smoked per day: 1 Years cigarettes smoked: 10 and e-cigarettes E-Cigarette Details: e- cigarette and with nicotine E-cig/vape details: Use when regular cigarettes are not available. Quit status (tobacco): not considering quitting Second hand smoke exposure: Yes Smoking risk assessment/counseling performed?: No Current gender identity: Male Physical Exam Const: COMMON NORMALS: no acute distress, patient oriented x3 and healthy appearing HENMT: COMMON NORMALS: normocephalic and atraumatic HEAD & SCALP: normocephalic and atraumatic Eye: COMMON NORMALS: Equal, round and reactive pupils present and EOMs intact bilaterally PUPIL: Yes Equal, round and reactive pupils present Neck/C-Spine: COMMON NORMALS: full ROM and supple Chest: COMMONS NORMALS: normal inspection of the chest and normal palpation of entire chest wall Resp: COMMON NORMALS: normal respiratory effort, No retractions, No use of accessory muscles and clear to auscultation bilaterally AUSCULTATION: clear to auscultation bilaterally Cardio: COMMON NORMALS: regular rate, regular rhythm and No murmurs present (Cardio) RATE: regular rate RHYTHM: regular rhythm GI: COMMON NORMALS: Normal to inspection, nondistended, normoactive bowel sounds present, Soft to palpation, non-tender and no masses PALPATION: Yes Soft to palpation Extremity: OTHER: Some swelling to left forearm slight warmth to touch no abscess noted distal pulses intact Neuro: COMMON NORMALS: patient oriented x3, moves all extremities and no focal motor deficits Psych: COMMON NORMALS: mental status grossly normal, Normal thought process present and cooperative THOUGHT PROCESS: Normal thought process present Skin: COMMON NORMALS: no rashes or lesions noted and no wounds GENERAL SKIN EXAM: no rashes or lesions noted Course Vital Signs: Vital signs: Vital Signs Temperature 96.9 F L 05/26/22 23:49 Pulse Rate 113 H 05/27/22 01:59 Respiratory Rate 18 05/27/22 01:59 Blood Pressure 130/86 05/27/22 01:59 Pulse Oximetry 98 05/27/22 01:59 Oxygen Delivery Me thod 05/27/22 01:59 MDM - General Adult Medical Decision Making Patient presents for left arm swelling patient eloped from the ER I was unable to speak to him before he eloped. His ultrasound did not came back yet patient walked out the door. Lab Data : 05/27/22 00:05 05/27/22 00:05 Laboratory Results WBC 11.6 10^3/uL (4.0-10.0) H 05/27/22 00:05 RBC 4.80 10^6/uL (4.1-5.3) 05/27/22 00:05 Hgb 14.5 g/dL (11.7-16.6) 05/27/22 00:05 Hct 42.8 % (42.0-52.0) 05/27/22 00:05 MCV 89.2 fl (80-94) 05/27/22 00:05 MCH 30.2 pg (28.0-34.0) 05/27/22 00:05 MCHC 33.9 g/dL (30.0-36.0) 05/27/22 00:05 RDW 12.0 % (12.1-15.1) L 05/27/22 00:05 Plt Count 260 10^3/cmm (130-400) 05/27/22 00:05 MPV 9.7 fL (7.4-10.4) 05/27/22 00:05 Neut % (Auto) 65.4 % 05/27/22 00:05 Lymph % (Auto) 24.4 % 05/27/22 00:05 [place] % (Auto) 8.6 % 05/27/22 00:05 Eos % (Auto) 1.0 % 05/27/22 00:05 Baso % (Auto) 0.3 % 05/27/22 00:05 Neut # (Auto) 7.61 10^3/uL (1.8-7.7) 05/27/22 00:05 Lymph # (Auto) 2.8 10^3/uL (0.8-4.8) 05/27/22 00:05 [place] # (Auto) 1.0 10^3/uL (0.2-0.9) H 05/27/22 00:05 Eos # (Auto) 0.1 10^3/uL (0.0-0.8) 05/27/22 00:05 Baso # (Auto) 0.0 10^3/uL (0.0-0.1) 05/27/22 00:05 Nucleated RBC % (auto) 0 % 05/27/22 00:05 Nucleated RBCs # 0.0 /100WBC 05/27/22 00:05 Sodium 137 mmol/L (136-145) 05/27/22 00:05 Potassium 4.5 mmol/L (3.5-5.1) 05/27/22 00:05 Chloride 100 mmol/L (98-107) 05/27/22 00:05 Carbon Dioxide 25 mmol/L (22-29) 05/27/22 00:05 Anion Gap 16.5 (5-19) 05/27/22 00:05 BUN 14 mg/dL (6-20) 05/27/22 00:05 Creatinine 0.9 mg/dL (0.7-1.2) 05/27/22 00:05 GFR Calculation 101.2 mL/min (90-130) 05/27/22 00:05 Glucose 101 mg/dL (65-115) 05/27/22 00:05 Calculated Osmolality 285 mOsm/kg (285-295) 05/27/22 00:05 Calcium 9.3 mg/dL (8.5-10.5) 05/27/22 00:05 Total Bilirubin 0.2 mg/dL (0.15-1.2) 05/27/22 00:05 AST 15 U/L (0-40) 05/27/22 00:05 ALT 11 U/L (0-41) 05/27/22 00:05 Alkaline Phosphatase 84 U/L (40-130) 05/27/22 00:05 Total Protein 7.9 g/dL (6.6-8.7) 05/27/22 00:05 Albumin 4.2 g/dL (3.5-5.2) 05/27/22 00:05 Globulin 3.7 g/dL (1.3-4.6) 05/27/22 00:05 Discharge Plan Discharge Patient Disposition: Home Clinical Impression: Left arm swelling Condition: Stable Discharge Orders: Discharge ED (Routine); Ordered 05/27/22 Ordered By: Ab Anderson Patient Instructions: Opioid Safety, Pain Management Coding Level of Care Code ED Centrifugal Extractor Operator for Joann Fwd Exam Comprehensive
[2022-05-27 00:16] LABS: Basophils % 0.3 %; Eosinophils # 0.1 10^3/uL (0.0-0.8); Hematocrit 42.8 % (42.0-52.0); Hemoglobin 14.5 g/dL (11.7-16.6); Lymphocytes # 2.8 10^3/uL (0.8-4.8); Lymphocytes % 24.4 %; Mean Corpuscular HGB Conc 33.9 g/dL (30.0-36.0); Mean Corpuscular Hemoglobin 30.2 pg (28.0-34.0); Mean Corpuscular Volume 89.2 fl (80-94); Mean Platelet Volume 9.7 fL (7.4-10.4); Monocytes % 8.6 %; Neutrophils # 7.61 10^3/uL (1.8-7.7); Neutrophils % 65.4 %; Nucleated Red Blood Cells % 0 %; Platelet Count 260 10^3/cmm (130-400); White Blood Count 11.6 10^3/uL (4.0-10.0)
[2022-05-27 00:43] LABS: Alanine Aminotransferase 11 U/L (0-41); Albumin Level 4.2 g/dL (3.5-5.2); Alkaline Phosphatase 84 U/L (40-130); Aspartate Amino Transferase 15 U/L (0-40); Blood Urea Nitrogen 14 mg/dL (6-20); Calcium 9.3 mg/dL (8.5-10.5); Carbon Dioxide 25 mmol/L (22-29); Chloride 100 mmol/L (98-107); Globulin 3.7 g/dL (1.3-4.6); Glomerular Filtration Rate 101.2 mL/min (90-130); Glucose 101 mg/dL (65-115); Osmolality Calculated 285 mOsm/kg (285-295); Sodium 137 mmol/L (136-145); Total Bilirubin 0.2 mg/dL (0.15-1.2); Total Protein 7.9 g/dL (6.6-8.7)
[2022-05-27 00:53] LABS: Anion Gap 16.5 (5-19); Potassium 4.5 mmol/L (3.5-5.1)
[2022-05-27 01:59] VITALS: BP 130/86; PULSE 113; RESP 18; O2SAT 98
--- NOTE | 2022-05-27 23:57 | USR_ITS ---
PROCEDURE INFORMATION: Exam: US Duplex Left Upper Extremity Veins, Limited Exam date and time: 05/27/2022 12:48 AM Age: 26 years old Clinical indication: Pain; Arm, lower; Patient HX: Lue edema x 3-4 days. Denies trauma. No history of dvt per patient. Patient's left arm is covered with numerous strands of a rubbery substance. I asked patient what they were. He stated that he wrapped his arm in toilet paper and then sprayed on liquid latex. ; Additional info: Swelling TECHNIQUE: Imaging protocol: Real-time Duplex ultrasound of the Left Upper Extremity with 2-D st scale, color Doppler flow and spectral waveform analysis with image documentation. Limited exam focused on the left upper extremity veins. COMPARISON: No relevant prior studies available. FINDINGS: Evaluated veins include the internal jugular, subclavian, axillary, brachial, basilic, cephalic, radial, and ulnar veins. No visible clot in the included veins. The included veins appear normally compressible. Duplex Doppler evaluation demonstrates flow in the evaluated veins. US/[place] [id number] IMPRESSION: No evidence of acute left upper extremity DVT.
== END 2022-05-27 02:19 | disposition home or self-care (01) ==
PROVIDERS: Emergency Provider Emergency Medicine
DX: M79.89 Other specified soft tissue disorders (principal); F17.210 Nicotine dependence, cigarettes, uncomplicated
CPT/HCPCS: 80053; 85025; 93971; 99284

== ENCOUNTER 2024-03-29 22:58 | Inpatient (IN) | payer BC, MEDICAID, SELFPAY ==
[2024-03-29 23:02] VITALS: PULSE 102; RESP 14; O2SAT 100
--- NOTE | 2024-03-29 23:15 | ECG_ITS ---
[facility] Test Date: 2024-03-29 Pat Name: Delvin Coe Department: Room: 127 Gender: Male Appraiser Personal Property: : 1995 Requested By: Behzad Collado Order Number: [id number] Bahman MD: Og Ward M.D. Measurements Intervals [place] Rate: 85 P: 56 W[place]: 146 QRS: 15 QRSD: 89 T: 42 QT: 345 QTc: 412 Interpretive Statements SINUS RHYTHM WITH SINUS ARRHYTHMIA POSSIBLE LEFT ATRIAL ENLARGEMENT [-0.1mV P-WAVE IN V1/V2] Compared to ECG 10/24/2021 15:09:18 No significant changes Electronically Signed On 03-30-2024 14:56:50 CDT by Og Ward M.D. [email or web address]
--- NOTE | 2024-03-29 23:57 | W.ED.PSYCHS ---
HPI - Psych General: Chief Complaint: Psychiatric Symptoms Stated Complaint: tried to od, cpr was done Time Seen by Provider: 03/29/24 23:14 History of Present Illness: Patient is here for suicidal attempt. Patient stated about 2 nitro trying to kill himself somewhere he can in this world. But a friend did CPR on him brought him back. Patient said 911 was not called patient is upset that he did not . Patient's complaining of pain to his ribs while breathing. Related Data Previous Rx's Medication Instructions Recorded fluoxetine 20 mg capsule (Prozac) 20 mg PO DAILY #30 caps 01/18/24 fluoxetine 40 mg capsule (Prozac) 40 mg PO DAILY #30 caps 01/18/24 hydroxyzine HCl 50 mg tablet 50 mg PO QID PRN anxiety #120 tabs 01/18/24 mirtazapine 15 mg tablet 15 mg PO .HS #30 tabs 02/11/24 Allergies Allergy/AdvReac Type Severity Reaction Status Date / Time codeine AdvReac Intermediate ADR-Nausea Verified 03/29/24 23:08 tramadol [From Ultram] AdvReac Intermediate ALGY-Hives Verified 03/29/24 23:08 Review of Systems General: Reports: 10 or more systems reviewed and unremarkable except in HPI and below PFSH ED PFSH: Medical History Psychiatric care Methamphetamine use disorder, severe, dependence Social History Smoking and tobacco/nicotine status: current every day tobacco/nicotine user cigarettes Packs smoked per day: 3 Years cigarettes smoked: 10 and e-cigarettes E-Cigarette Details: e-cigarette and with nicotine E-cig/vape details: Use when regular cigarettes are not available. Quit status (tobacco/nicotine): not considering quitting Second hand smoke exposure: Yes Alcohol intake: former Substance/Drug Use: current Adopted: No Caregiver/support person: No Lives independently: Yes Household members: family Housing: House Marital status: Single Number of children: 2 Highest education level completed: High School Graduate service: No Do you think of yourself as: Straight/Heterosexual Current gender identity: Male Special ella needs: No Physical Exam Const: COMMON NORMALS: no acute distress, average body habitus, patient oriented x3, no limitations, healthy appearing, alert and well nourished HENMT: COMMON NORMALS: normocephalic, atraumatic, hearing grossly normal bilaterally, external ears normal, Normal external nose present and moist oral mucous membranes HEAD & SCALP: normocephalic and atraumatic NOSE: Normal external nose present EXTERNAL EAR: Yes external ears normal Neck/C-Spine: COMMON NORMALS: full ROM, no lymphadenopathy, supple, no meningeal signs, no JVD and Thyroid normal THYROID: Thyroid normal Chest: COMMONS NORMALS: normal inspection of the chest and normal palpation of entire chest wall Resp: COMMON NORMALS: normal respiratory effort, No retractions, No use of accessory muscles and clear to auscultation bilaterally AUSCULTATION: clear to auscultation bilaterally Cardio: COMMON NORMALS: no JVD, regular rate, regular rhythm, S1 normal heart sound present, S2 normal heart sound present, No gallops present (Cardio), No clicks present (Cardio), No murmurs present (Cardio) and No rub (Cardio) RATE: regular rate RHYTHM: regular rhythm HEART SOUNDS: S1 normal heart sound present and S2 normal heart sound present GI: COMMON NORMALS: Normal to inspection, nondistended, normoactive bowel sounds present, Soft to palpation, non-tender, No hepatosplenomegaly present and no masses PALPATION: Yes Soft to palpation and Yes No hepatosplenomegaly present Neuro: COMMON NORMALS: patient oriented x3 SENSORIUM/ORIENTATION: Yes alert MENINGEAL SIGNS: Yes no meningeal signs Course Vital Signs: Vital signs: Vital Signs Pulse Rate 102 H 03/29/24 23:02 Respiratory Rate 14 03/29/24 23:02 Pulse Oximetry 100 03/29/24 23:02 Oxygen Delivery Me thod Room Air 03/29/24 23:02 [facility] - Psych Medical Decision Making Patient was cleared medically, discussed the results with Dr. Rubio who agreed to place patient in MPU. Medical Records I reviewed the patient's medical records. Lab Data I reviewed the patient's lab results. 03/29/24 23:11 03/29/24 23:11 Laboratory Results WBC 10.15 10^3/uL (3.29-11.43) 03/29/24 23:11 RBC 5.50 10^6/uL (3.85-5.65) 03/29/24 23:11 Hgb 16.70 g/dL (11.27-16.99) 03/29/24 23:11 Hct 47.7 % (37-53) 03/29/24 23:11 MCV 86.7 fl (82-101) 03/29/24 23:11 MCH 30.4 pg (27-33) 03/29/24 23:11 MCHC 35.0 g/dL (30-55) 03/29/24 23:11 RDW 11.9 % (12.1-15.1) L 03/29/24 23:11 Plt Count 292 10^3/cmm (157-399) 03/29/24 23:11 MPV 9.5 fL (7.4-10.4) 03/29/24 23:11 Neut % (Auto) 57.8 % 03/29/24 23:11 Lymph % (Auto) 30.7 % 03/29/24 23:11 [place] % (Auto) 9.7 % 03/29/24 23:11 Eos % (Auto) 1.0 % 03/29/24 23:11 Baso % (Auto) 0.5 % 03/29/24 23:11 Neut # (Auto) 5.87 10^3/uL (1.8-7.7) 03/29/24 23:11 Lymph # (Auto) 3.1 10^3/uL (0.8-4.8) 03/29/24 23:11 [place] # (Auto) 1.0 10^3/uL (0.2-0.9) H 03/29/24 23:11 Eos # (Auto) 0.1 10^3/uL (0.0-0.8) 03/29/24 23:11 Baso # (Auto) 0.1 10^3/uL (0.0-0.1) 03/29/24 23:11 Nucleated RBC % (auto) 0 % 03/29/24 23:11 Nucleated RBCs # 0.0 /100WBC 03/29/24 23:11 Sodium 139 mmol/L (136-145) 03/29/24 23:11 Potassium 3.5 mmol/L (3.5-5.1) 03/29/24 23:11 Chloride 103 mmol/L (98-107) 03/29/24 23:11 Carbon Dioxide 19 mmol/L (22-29) L 03/29/24 23:11 Anion Gap 20.5 (5-19) H 03/29/24 23:11 BUN 18 mg/dL (6-20) 03/29/24 23:11 Creatinine 1.0 mg/dL (0.7-1.2) 03/29/24 23:11 GFR Calculation 88.3 mL/min (90-130) L 03/29/24 23:11 Glucose 95 mg/dL (65-115) 03/29/24 23:11 Calculated Osmolality 290 mOsm/kg (285-295) 03/29/24 23:11 Calcium 9.0 mg/dL (8.5-10.5) 03/29/24 23:11 Total Bilirubin 0.8 mg/dL (0.15-1.2) 03/29/24 23:11 AST 35 U/L (0-40) 03/29/24 23:11 ALT 79 U/L (0-41) H 03/29/24 23:11 Alkaline Phosphatase 74 U/L (40-130) 03/29/24 23:11 Total Protein 8.2 g/dL (6.6-8.7) 03/29/24 23:11 Albumin 4.5 g/dL (3.5-5.2) 03/29/24 23:11 Globulin 3.7 g/dL (1.3-4.6) 03/29/24 23:11 Urine Color Dark yellow (Yellow) A 03/29/24 23:55 Urine Appearance Cloudy (CLEAR) A 03/29/24 23:55 Urine pH 5.5 (5-7) 03/29/24 23:55 Ur Specific [place] 1.034 (1.005-1.030) H 03/29/24 23:55 Urine Protein 1+ (Negative) A 03/29/24 23:55 Urine Glucose (UA) Negative (Normal) 03/29/24 23:55 Urine Ketones 2+ (Negative) H 03/29/24 23:55 Urine Blood Negative (Negative) 03/29/24 23:55 Urine Nitrate Negative (Negative) 03/29/24 23:55 Urine Bilirubin 2+ (Negative) H 03/29/24 23:55 Urine Urobilinogen 1.0 mg/dL (Negative) 03/29/24 23:55 Ur Leukocyte Esterase Trace (Negative) A 03/29/24 23:55 Urine RBC None /hpf (0-2) 03/29/24 23:55 Urine WBC 5-10 /hpf (0-5) H 03/29/24 23:55 Calcium Oxalate Crystal 0-4 /hpf H 03/29/24 23:55 Amorphous Sediment Not Reportable 03/29/24 23:55 Urine Bacteria Trace /hpf (NONE) 03/29/24 23:55 Hyaline Casts 0-4 /lpf H 03/29/24 23:55 Urine Mucus 3+ /hpf 03/29/24 23:55 Salicylates < 0.3 mg/dL (3-10) L 03/29/24 23:11 Urine Opiates Screen Negative ng/mL (Negative) 03/29/24 23:55 Acetaminophen < 5.0 ug/mL (10-30) L 03/29/24 23:11 Ur Barbiturates Screen Negative ng/mL (Negative) 03/29/24 23:55 Ur Phencyclidine Scrn Negative ng/mL (Negative) 03/29/24 23:55 Ur Amphetamines Screen Positive ng/mL (Negative) H 03/29/24 23:55 U Benzodiazepines Scrn Negative ng/mL (Negative) 03/29/24 23:55 Urine Cocaine Screen Negative ng/mL (Negative) 03/29/24 23:55 U Marijuana (THC) Screen Negative ng/mL (Negative) 03/29/24 23:55 Ethyl Alcohol < 10 mg/dL (0-10) 03/29/24 23:11 No radiology studies performed this visit Discharge Plan Discharge Patient Disposition: Admitted As Inpatient Clinical Impression: Methamphetamine use disorder, severe, dependence, Suicidal ideation Condition: Stable Coding Level of Care Code ED Health Information Systems Technician for Joann Lin
[2024-03-30] LABS: Charge for UA Resulting for Rev
[2024-03-30 00:03] LABS: Bilirubin Urine 2+ (Negative); Blood Urine Negative (Negative); Glucose Urine UA Negative (Normal); Ketones Urine 2+ (Negative); Leukocyte Esterase Urine Trace (Negative); Nitrate Urine Negative (Negative); Protein Urine 1+ (Negative); Urine Appearance Cloudy (CLEAR); pH Urine 5.5 (5-7)
[2024-03-30 00:10] LABS: Amphetamines Screen Urine Positive (Negative); Barbiturates Screen Urine Negative (Negative); Benzodiazepines Screen Urine Negative (Negative); Cocaine Screen Urine Negative (Negative); Opiate Screen Urine Negative (Negative); PCP Screen Urine Negative (Negative); THC Screen Urine Negative (Negative)
[2024-03-30 00:26] LABS: Basophils # 0.1 10^3/uL (0.0-0.1); Basophils % 0.5 %; Eosinophils # 0.1 10^3/uL (0.0-0.8); Hematocrit 47.7 % (37-53); Lymphocytes # 3.1 10^3/uL (0.8-4.8); Lymphocytes % 30.7 %; Mean Corpuscular Hemoglobin 30.4 pg (27-33); Mean Corpuscular Volume 86.7 fl (82-101); Mean Platelet Volume 9.5 fL (7.4-10.4); Monocytes % 9.7 %; Neutrophils # 5.87 10^3/uL (1.8-7.7); Neutrophils % 57.8 %; Nucleated Red Blood Cells % 0 %; Platelet Count 292 10^3/cmm (157-399); Red Cell Distribution Width 11.9 % (12.1-15.1); White Blood Count 10.15 10^3/uL (3.29-11.43)
[2024-03-30 00:27] LABS: Specific Gravity, Urine 1.034 (1.005-1.030); UA Manual Slide Review YES; Urine Color Dark Yellow (Yellow)
[2024-03-30 00:28] LABS: Add Urine Culture? No; Bacteria Urine TRACE /hpf; Calcium Oxalate Crystals Urine 0-4 /hpf; Hyaline Casts Urine 0-4 /lpf; Mucus Urine 3+ /hpf
[2024-03-30 00:29] LABS: Alanine Aminotransferase 79 U/L (0-41); Albumin Level 4.5 g/dL (3.5-5.2); Alkaline Phosphatase 74 U/L (40-130); Anion Gap 20.5 (5-19); Aspartate Amino Transferase 35 U/L (0-40); Blood Urea Nitrogen 18 mg/dL (6-20); Carbon Dioxide 19 mmol/L (22-29); Chloride 103 mmol/L (98-107); Creatinine Clr Calc Pharmacy 108.6351; Globulin 3.7 g/dL (1.3-4.6); Glomerular Filtration Rate 88.3 mL/min (90-130); Glucose 95 mg/dL (65-115); Osmolality Calculated 290 mOsm/kg (285-295); Potassium 3.5 mmol/L (3.5-5.1); Sodium 139 mmol/L (136-145); Total Bilirubin 0.8 mg/dL (0.15-1.2); Total Protein 8.2 g/dL (6.6-8.7)
[2024-03-30 00:32] LABS: Acetaminophen < 5.0 ug/mL (10-30); Alcohol Level < 10 mg/dL (0-10); Salicylate < 0.3 mg/dL (3-10)
[2024-03-30 00:55] VITALS: BP 101/70; PULSE 93; RESP 18; O2SAT 96
--- NOTE | 2024-03-30 01:26 | PC.NURSE ---
96 Hour Involuntary Hold Patient Rights have been read to the patient and a copy of the same has been provided to him. Stereo Equipment Salesperson'gaby Valladares and Jaquan were present at bedside at the time of presentation of Rights. Patient verbalizes understanding of Rights.
[2024-03-30 01:31] VITALS: BP 106/68; PULSE 100; RESP 15; O2SAT 97
[2024-03-30 01:34] VITALS: BP 121/83; PULSE 103; RESP 18; TEMP 36.7; O2SAT 98
[2024-03-30 05:41] VITALS: BP 113/76; PULSE 97; RESP 18; TEMP 36.7; O2SAT 95
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
[2024-03-30] MEDS: fluoxetine 20 mg Capsule PO (13:50)
[2024-03-30] MEDS: nicotine 21 mg Patch 1 PATCH TRANSDERMA (13:53)
[2024-03-30 14:00] VITALS: BP 122/86; PULSE 89; RESP 17; TEMP 36.9; O2SAT 98
[2024-03-30 15:16] LABS: HIV 1 & 2 Antibody Non-Reactive (Non-Reactiv); HIV 1 & 2 Antigen Non-Reactive (Non-Reactiv)
[2024-03-30 15:25] LABS: Hepatitis A Antibody IgM Non-Reactive (Nonreactive); Hepatitis B Core AB, Total Non-Reactive (Nonreactive); Hepatitis B Surface AB < 3.5 (11.5-1000); Hepatitis B Surface Antigen Non-Reactive (Nonreactive); Hepatitis C Virus Antibody Reactive (Nonreactive)
[2024-03-30 19:36] VITALS: BP 127/85; PULSE 109; RESP 18; TEMP 36.7; O2SAT 98
[2024-03-31 06:00] VITALS: BP 102/66; PULSE 80; RESP 17; TEMP 36.4; O2SAT 98
[2024-03-31] MEDS: fluoxetine 20 mg Capsule PO (10:41)
[2024-03-31] MEDS: nicotine 21 mg Patch 1 PATCH TRANSDERMA (10:41)
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
[2024-03-31 13:49] VITALS: BP 115/83; PULSE 109; RESP 18; TEMP 36.8; O2SAT 97
--- NOTE | 2024-03-31 14:39 | P.NPUPN_ITS ---
Subjective NPU 2 Subjective: Patient presented today reporting that he was feeling better. He had reported a desire to be discharged per staff reports and in direct conversation he was asking about if he could be discharged today. We discussed the fact that he is on a 96-hour hold and so we need to make decisions in relation to his safety given concerns for a suicide attempt that he reported. He denied any side effects to his medication being restarted and we discussed taking things a day at a time. Mental Status Exam 2 MSE Comments: This is an overweight versus obese white male, in hospital scrubs, with limited grooming and eye contact. No abnormal involuntary motor movements appreciated except for psychomotor retardation. He was cooperative with exam in mild distress. Speech was limited and decreased rate and volume. Mood described as better,. His affect subdued today. Thought process was linear and mostly organized. Thought content: patient denied any suicidal or homicidal ideation, there were no delusions reported or noted, he denied any auditory or visual hallucinations. His attention, concentration, and memory appeared intact but none were formally tested.. He is alert and oriented to person and place. Insight was poor and judgment and impulse control are limited currently. Vitals/I&O/Wt Last Vital Signs Temp 98.2 F 03/31/24 13:49 Pulse 109 H 03/31/24 13:49 Resp 18 03/31/24 13:49 BP 115/83 03/31/24 13:49 Pulse Ox 97 03/31/24 13:49 O2 Del Method Room Air 03/31/24 13:49 Weight last 48 hrs Weight 83.915 kg Data NPU 03/29/24 23:11 03/29/24 23:11 A&P Assessment and plan (1) Depression, unspecified: (2) Suicide attempt by substance overdose: (3) Methamphetamine use disorder, severe, dependence: (4) Generalized anxiety disorder: (5) Social anxiety disorder: Plan 28-year-old male with polysubstance dependence with continued use of inhalants and likely methamphetamine admitted with worsening depression and anxiety. Patient may benefit from inpatient substance abuse treatment along with treatment for his anxiety and depression. 1.? Engage patient in individual milieu and group therapy. 2.??Recommend sober living treatment at the highest level of care to which the patient is willing to commit 3.??WIll restarted prozac 20mg daily along with hydroxyzine for anxiety. 4.??TO-15 minute checks 5.??Will attempt to gather collateral information Involuntary Hold Information 2 96 Hour Hold: 96 Hour Involuntary Admission: Yes 96 Hour Hold Ending Date: 04/05/24 96 Hour Hold Ending Time: 01:10 Attestations NPU 2 Medical Necessity Statement*: Inpatient hospitalization is medically necessary and deemed to ?be ?the clinically appropriate intervention ?at this time.? We will monitor/initiate medications and make changes as indicated.? The patient?s likely length of stay 4-6 days. Coding Level of Care Code Acute Code for g Fwd Diagnoses Depression, unspecified F32.A Suicide attempt by substance overdose T65.92XA Methamphetamine use disorder, severe, dependence F15.20 Generalized anxiety disorder F41.1 Social anxiety disorder F40.10
[2024-03-31 20:16] VITALS: BP 110/74; PULSE 65; RESP 17; TEMP 37; O2SAT 99
[2024-03-31] MEDS: trazodone 50 mg Tablet PO (21:02)
[2024-04-01 06:00] VITALS: BP 108/70; PULSE 64; RESP 17; O2SAT 99
[2024-04-01] MEDS: fluoxetine 20 mg Capsule PO (09:27)
[2024-04-01] MEDS: nicotine 21 mg Patch 1 PATCH TRANSDERMA (09:27)
[2024-04-01 14:00] VITALS: BP 129/79; PULSE 66; RESP 16; TEMP 36.8; O2SAT 100
[2024-04-01 15:34] LABS: HEP C RNA Viral Load Quant 457000 IU/mL (NOT DETECTED); HEP C RNA Viral Load Quant 5.66 Log IU/mL (NOT DETECTED)
--- NOTE | 2024-04-01 15:40 | P.NPUPN_ITS ---
Subjective NPU 2 Subjective: Patient presented today reporting that he is doing fine. He continues to report a desire to go home but was less irritable per staff reports and direct observation. We continued to discuss the vet when someone has a clear suicide attempt that them just saying they are fine the next day does not get them discharged and we do have to do appropriate observation. He denied any side effects to the medication that was restarted. Mental Status Exam 2 MSE Comments: This is an overweight versus obese white male, in hospital scrubs, with limited grooming and eye contact. No abnormal involuntary motor movements appreciated except for psychomotor retardation. He was cooperative with exam in mild distress. Speech was limited and decreased rate and volume. Mood described as better,. His affect subdued today. Thought process was linear and mostly organized. Thought content: patient denied any suicidal or homicidal ideation, there were no delusions reported or noted, he denied any auditory or visual hallucinations. His attention, concentration, and memory appeared intact but none were formally tested.. He is alert and oriented to person and place. Insight was poor and judgment and impulse control are limited currently. Vitals/I&O/Wt Last Vital Signs Temp 97.8 F 04/01/24 14:00 Pulse 66 04/01/24 14:00 Resp 16 04/01/24 14:00 BP 129/79 04/01/24 14:00 Pulse Ox 100 04/01/24 14:00 O2 Del Method Room Air 04/01/24 14:00 Weight last 48 hrs Weight 85.275 kg Data NPU 03/29/24 23:11 03/29/24 23:11 A&P Assessment and plan (1) Depression, unspecified: (2) Suicide attempt by substance overdose: (3) Methamphetamine use disorder, severe, dependence: (4) Generalized anxiety disorder: (5) Social anxiety disorder: Plan 28-year-old male with polysubstance dependence with continued use of inhalants and likely methamphetamine admitted with worsening depression and anxiety. Patient may benefit from inpatient substance abuse treatment along with treatment for his anxiety and depression. 1.? Engage patient in individual milieu and group therapy. 2.??Recommend sober living treatment at the highest level of care to which the patient is willing to commit 3.??Restarted prozac 20mg daily along with hydroxyzine for anxiety. 4.??TO-15 minute checks 5.??Will attempt to gather collateral information Involuntary Hold Information 2 96 Hour Hold: 96 Hour Involuntary Admission: Yes 96 Hour Hold Ending Date: 04/05/24 96 Hour Hold Ending Time: 01:10 Attestations NPU 2 Medical Necessity Statement*: Inpatient hospitalization is medically necessary and the clinically appropriate intervention at this time.? We will monitor/initiate medications and make changes as indicated.? The patient?s likely length of stay days. Coding Level of Care Code Acute Code for [facility] Fwd Diagnoses Depression, unspecified F32.A Suicide attempt by substance overdose T65.92XA Methamphetamine use disorder, severe, dependence F15.20 Generalized anxiety disorder F41.1 Social anxiety disorder F40.10
[2024-04-01 19:48] VITALS: BP 122/86; PULSE 79; RESP 18; TEMP 36.7; O2SAT 98
[2024-04-01] MEDS: trazodone 50 mg Tablet PO (19:55)
[2024-04-02 06:00] VITALS: BP 101/67; PULSE 62; RESP 18; TEMP 36.6; O2SAT 98
[2024-04-02] MEDS: fluoxetine 20 mg Capsule PO (08:05)
[2024-04-02] MEDS: nicotine 21 mg Patch 1 PATCH TRANSDERMA (08:08)
--- NOTE | 2024-04-02 09:13 | P.NPUPN_ITS ---
Subjective NPU 2 Subjective: Patient presented today reporting that he is doing okay. Continues to be hopeful for discharge but appeared to be accepting of the fact that earliest cancer discharge will be tomorrow. He identified that his plan was still to return to his friend with whom he had been staying. He denies any side effects to the medication and reported that he would be able to get a ride tomorrow. Mental Status Exam 2 MSE Comments: This is an overweight versus obese white male, in hospital scrubs, with limited grooming and eye contact. No abnormal involuntary motor movements appreciated except for psychomotor retardation. He was cooperative with exam in mild distress. Speech was limited and decreased rate and volume. Mood described as better,. His affect subdued today. Thought process was linear and mostly organized. Thought content: patient denied any suicidal or homicidal ideation, there were no delusions reported or noted, he denied any auditory or visual hallucinations. His attention, concentration, and memory appeared intact but none were formally tested.. He is alert and oriented to person and place. Insight was poor and judgment and impulse control are limited currently. Vitals/I&O/Wt Last Vital Signs Temp 97.8 F 04/02/24 06:00 Pulse 62 04/02/24 06:00 Resp 18 04/02/24 06:00 BP 101/67 04/02/24 06:00 Pulse Ox 98 04/02/24 06:00 O2 Del Method Room Air 04/02/24 06:00 Weight last 48 hrs Weight 85.275 kg Data NPU 03/29/24 23:11 03/29/24 23:11 A&P Assessment and plan (1) Depression, unspecified: (2) Suicide attempt by substance overdose: (3) Methamphetamine use disorder, severe, dependence: (4) Generalized anxiety disorder: (5) Social anxiety disorder: Plan 28-year-old male with polysubstance dependence with continued use of inhalants and likely methamphetamine admitted with worsening depression and anxiety. Patient may benefit from inpatient substance abuse treatment along with treatment for his anxiety and depression. 1.? Engage patient in individual milieu and group therapy. 2.??Recommend sober living treatment at the highest level of care to which the patient is willing to commit 3.??Restarted prozac 20mg daily along with hydroxyzine for anxiety. 4.??TO-15 minute checks 5.??Will attempt to gather collateral information Involuntary Hold Information 2 96 Hour Hold: 96 Hour Involuntary Admission: Yes 96 Hour Hold Ending Date: 04/05/24 96 Hour Hold Ending Time: 01:10 Attestations NPU 2 Medical Necessity Statement*: Inpatient hospitalization is medically necessary and the clinically appropriate intervention at this time.? We will monitor/initiate medications and make changes as indicated.? The patient?s likely length of stay 1-3 days. Coding Level of Care Code Acute Code for [facility] Fwd Diagnoses Depression, unspecified F32.A Suicide attempt by substance overdose T65.92XA Methamphetamine use disorder, severe, dependence F15.20 Generalized anxiety disorder F41.1 Social anxiety disorder F40.10
[2024-04-02 14:00] VITALS: BP 135/74; PULSE 88; RESP 16; TEMP 36.9; O2SAT 98
[2024-04-02 20:07] VITALS: BP 111/73; PULSE 73; RESP 18; TEMP 37.2; O2SAT 98
[2024-04-02] MEDS: trazodone 50 mg Tablet PO (20:07)
[2024-04-03 06:00] VITALS: BP 107/71; PULSE 71; RESP 18; TEMP 36.6; O2SAT 98
[2024-04-03] MEDS: fluoxetine 20 mg Capsule PO (08:33)
[2024-04-03 12:37] VITALS: BP 107/71; PULSE 71; RESP 18; TEMP 36.6; O2SAT 98
== END 2024-04-03 14:42 | disposition home or self-care (01) | DRG 914 ==
LOC: ER 03-30 00:59 → NP 03-30 01:09
PROVIDERS: Psychiatry & Neurology Psychiatry; Admitting Provider Psychiatry & Neurology Psychiatry; Emergency Provider Emergency Medicine; PCP Family Medicine; Visit Provider Psychiatry & Neurology Psychiatry
DX: T14.91XA Suicide attempt, initial encounter (principal); F15.20 Other stimulant dependence, uncomplicated; F18.90 Inhalant use, unspecified, uncomplicated; F32.A Depression, unspecified; F41.1 Generalized anxiety disorder; F41.8 Other specified anxiety disorders; F17.210 Nicotine dependence, cigarettes, uncomplicated; E66.3 Overweight; Z68.31 Body mass index [BMI] 31.0-31.9, adult; X83.8XXA Intentional self-harm by other specified means, initial encounter
CPT/HCPCS: 36415; 80053; 80306; 80307; 81003; 81015; 85025; 86705; 86706; 86709; 86803; 87340; 87522; 87806; 93005; 97150; 97165; 99285

== ENCOUNTER → 2024-08-14 17:01 | Outpatient (BNVA) | payer BC, MEDICAID, SELFPAY | PROVIDERS: PCP Family Medicine | DX: R31.9 Hematuria, unspecified (principal) | CPT/HCPCS: 81000 ==

== ENCOUNTER 2024-08-28 02:14 | Emergency (ER) | payer BC, MEDICAID, SELFPAY ==
[2024-08-28 02:20] VITALS: BP 130/95; PULSE 103; RESP 18; TEMP 38.1; O2SAT 94; BMI 33.3
--- NOTE | 2024-08-28 02:34 | W.ED.URI ---
HPI - URI/Sore Throat General: Chief Complaint: Upper Respiratory Infection Stated Complaint: fever\v\aches Time Seen by Provider: 08/28/24 02:33 History of Present Illness: 28-year-old male with 2 to 3 days of cough, congestion, multiple episodes of vomiting and fever. He has had bodyaches. He has vomited multiple times in the past 24 hours. No diarrhea. No blood in the vomit. Temperature up to 103. Related Data Previous Rx's Medication Instructions Recorded amoxicillin 500 mg capsule 500 mg PO TID #30 caps 08/14/24 ketorolac 10 mg tablet 10 mg PO TID PRN pain #10 tabs 08/28/24 ondansetron 4 mg disintegrating 4 mg PO Q6H PRN nausea and 08/28/24 tablet vomiting #14 tabs oseltamivir 75 mg capsule (Tamiflu) 75 mg PO BID 5 days #10 caps 08/28/24 Allergies Allergy/AdvReac Type Severity Reaction Status Date / Time codeine AdvReac Intermediate ADR-Nausea Verified 08/28/24 02:27 tramadol [From Ultram] AdvReac Intermediate ALGY-Hives Verified 08/28/24 02:27 [facility] ED PFS: Medical History Psychiatric care Methamphetamine use disorder, severe, dependence Social History Smoking and tobacco/nicotine status: current every day tobacco/nicotine user cigarettes Packs smoked per day: 3 Years cigarettes smoked: 10 and e-cigarettes E-Cigarette Details: e-cigarette and with nicotine E-cig/vape details: Use when regular cigarettes are not available. Quit status (tobacco/nicotine): not considering quitting Second hand smoke exposure: Yes Alcohol intake: former Substance/Drug Use: current Adopted: No Caregiver/support person: No Lives independently: Yes Household members: family Housing: House Marital status: Single Number of children: 2 Highest education level completed: High School Graduate service: No Do you think of yourself as: Straight/Heterosexual Current gender identity: Male Special ella needs: No Physical Exam Const: COMMON NORMALS: no acute distress GENERAL APPEARANCE: cooperative; not ill appearing and not frail appearing HENMT: COMMON NORMALS: normocephalic, atraumatic and Normal external nose present HEAD & SCALP: normocephalic and atraumatic FACE & SINUS: normal facial exam and face symmetric NOSE: Normal external nose present Eye: COMMON NORMALS: Equal, round and reactive pupils present and EOMs intact bilaterally PUPIL: Yes Equal, round and reactive pupils present Neck/C-Spine: GENERAL: Yes trachea midline Chest: CHEST: Yes Symmetrical chest wall rise Resp: COMMON NORMALS: normal respiratory effort, No retractions, No use of accessory muscles and clear to auscultation bilaterally AUSCULTATION: clear to auscultation bilaterally Cardio: COMMON NORMALS: regular rate and regular rhythm RATE: regular rate RHYTHM: regular rhythm GI: COMMON NORMALS: Normal to inspection, nondistended, normoactive bowel sounds present Extremity: COMMON NORMALS: no pedal edema Neuro: CLYDE COMA SCALE: document GCS findings Clyde coma scale eye opening: Spontaneous Clyde coma scale verbal response: Orientated Printer coma scale motor response: Obey commands Clyde coma scale total score: 15 SENSORY EXAM: Yes extremities (intact) Psych: COMMON NORMALS: speech normal SPEECH: Yes normal speech Skin: COMMON NORMALS: no rashes or lesions noted GENERAL SKIN EXAM: no rashes or lesions noted Course Vital Signs: Vital signs: Vital Signs Temperature 100.5 F H 08/28/24 02:20 Pulse Rate 82 08/28/24 04:27 Respiratory Rate 16 08/28/24 04:27 Blood Pressure 119/72 08/28/24 04:27 Pulse Oximetry 95 08/28/24 04:27 Oxygen Delivery Me thod Room Air 08/28/24 02:20 MDM - URI/Sore Throat Medical Decision Making Patient's vitals are stable. He is positive for influenza A. Laboratories otherwise not remarkable. He will be given Tamiflu. Zofran. Symptomatic treatment otherwise. Lab Data 08/28/24 03:09 08/28/24 03:09 Laboratory Results WBC 5.35 10^3/uL (3.29-11.43) 08/28/24 03:09 RBC 4.44 10^6/uL (3.85-5.65) 08/28/24 03:09 Hgb 13.90 g/dL (11.27-16.99) 08/28/24 03:09 Hct 39.9 % (37-53) 08/28/24 03:09 MCV 89.9 fl (82-101) 08/28/24 03:09 MCH 31.3 pg (27-33) 08/28/24 03:09 MCHC 34.8 g/dL (30-55) 08/28/24 03:09 RDW 12.5 % (12.1-15.1) 08/28/24 03:09 Plt Count 149 10^3/cmm (157-399) L 08/28/24 03:09 MPV 9.7 fL (7.4-10.4) 08/28/24 03:09 Neut % (Auto) 62.8 % 08/28/24 03:09 Lymph % (Auto) 22.6 % 08/28/24 03:09 [place] % (Auto) 14.0 % 08/28/24 03:09 Eos % (Auto) 0.0 % 08/28/24 03:09 Baso % (Auto) 0.2 % 08/28/24 03:09 Neut # (Auto) 3.36 10^3/uL (1.8-7.7) 08/28/24 03:09 Lymph # (Auto) 1.2 10^3/uL (0.8-4.8) 08/28/24 03:09 [place] # (Auto) 0.8 10^3/uL (0.2-0.9) 08/28/24 03:09 Eos # (Auto) 0.0 10^3/uL (0.0-0.8) 08/28/24 03:09 Baso # (Auto) 0.0 10^3/uL (0.0-0.1) 08/28/24 03:09 Nucleated RBC % (auto) 0 % 08/28/24 03:09 Nucleated RBCs # 0.0 /100WBC 08/28/24 03:09 Sodium 134 mmol/L (136-145) L 08/28/24 03:09 Potassium 3.7 mmol/L (3.5-5.1) 08/28/24 03:09 Chloride 98 mmol/L (98-107) 08/28/24 03:09 Carbon Dioxide 24 mmol/L (22-29) 08/28/24 03:09 Anion Gap 15.7 (5-19) 08/28/24 03:09 BUN 17 mg/dL (6-20) 08/28/24 03:09 Creatinine 1.3 mg/dL (0.7-1.2) H 08/28/24 03:09 GFR Calculation 65.3 mL/min (90-130) L 08/28/24 03:09 Glucose 111 mg/dL (65-115) 08/28/24 03:09 Calculated Osmolality 280 mOsm/kg (285-295) L 08/28/24 03:09 Lactic Acid 0.8 mmol/L (0.5-2.2) 08/28/24 03:09 Calcium 8.0 mg/dL (8.5-10.5) L 08/28/24 03:09 Total Bilirubin 0.4 mg/dL (0.15-1.2) 08/28/24 03:09 AST 61 U/L (0-40) H 08/28/24 03:09 ALT 82 U/L (0-41) H 08/28/24 03:09 Alkaline Phosphatase 56 U/L (40-130) 08/28/24 03:09 C-Reactive Protein 18.9 mg/L (0.0-4.9) H 08/28/24 03:09 Total Protein 6.7 g/dL (6.6-8.7) 08/28/24 03:09 Albumin 3.9 g/dL (3.5-5.2) 08/28/24 03:09 Globulin 2.8 g/dL (1.3-4.6) 08/28/24 03:09 Lipase 33 U/L (13-60) 08/28/24 03:09 Urine Color Yellow (Yellow) 08/28/24 03:56 Urine Appearance Clear (CLEAR) 08/28/24 03:56 Urine pH 6.0 (5-7) 08/28/24 03:56 Ur Specific Hiram 1.035 (1.005-1.030) H 08/28/24 03:56 Urine Protein 1+ (Negative) A 08/28/24 03:56 Urine Glucose (UA) Negative (Normal) 08/28/24 03:56 Urine Ketones Trace (Negative) 08/28/24 03:56 Urine Blood Negative (Negative) 08/28/24 03:56 Urine Nitrate Negative (Negative) 08/28/24 03:56 Urine Bilirubin Negative (Negative) 08/28/24 03:56 Urine Urobilinogen 1.0 mg/dL (Negative) 08/28/24 03:56 Ur Leukocyte Esterase Negative (Negative) 08/28/24 03:56 Urine RBC 3-5 /hpf (0-2) 08/28/24 03:56 Urine WBC 0-5 /hpf (0-5) 08/28/24 03:56 Ur Squamous Epith Cells 0-5 /hpf (0-5) 08/28/24 03:56 Amorphous Sediment Not Reportable 08/28/24 03:56 Urine Bacteria None seen /hpf (NONE) 08/28/24 03:56 Hyaline Casts 1.65 /lpf 08/28/24 03:56 Urine Mucus 1+ /hpf 08/28/24 03:56 Coronavirus (PCR) Negative (Negative) 08/28/24 03:09 Influenza A (PCR) Positive (Negative) 08/28/24 03:09 Influenza Type B (PCR) Negative (Negative) 08/28/24 03:09 RSV (PCR) Negative (Negative) 08/28/24 03:09 No radiology studies performed this visit Discharge Plan Discharge Patient Disposition: Home Clinical Impression: Influenza A Condition: Stable Prescriptions: New ketorolac 10 mg tablet 10 mg PO TID PRN (Reason: pain) Qty: 10 0RF ondansetron 4 mg tablet,disintegrating 4 mg PO Q6H PRN (Reason: nausea and vomiting) Qty: 14 0RF oseltamivir [Tamiflu] 75 mg capsule 75 mg PO BID 5 Days Qty: 10 0RF No Action amoxicillin 500 mg capsule 500 mg PO TID Qty: 30 0RF Discharge Orders: Discharge ED (Routine); Ordered 08/28/24 Ordered By: Ney Childress Referrals: Keven Mota MD [Primary Care Provider] - 1-3 days Patient Instructions: Influenza (ED), Opioid Safety, Pain Management Activity Restrictions/Additional Instructions: Antivirals as directed. Take the nausea medication every 4 hours while awake whether you feel nauseated or not for the first 24 hours, then as needed following that. Clear liquid diet only for the next 12 hours, then you may advance to normal foods slowly if there is no vomiting. Call your doctor later this morning for a follow-up appointment this week. Coding Level of Care Code ED Web Applications Administrator for Joann Lin
[2024-08-28] MEDS: ondansetron 2 mg/ML SDV 2 mL 8 MG IVP (03:15)
[2024-08-28] MEDS: ketorolac 30 mg/mL INJ IVP (03:15)
[2024-08-28] MEDS: sodium chloride 0.9% 1,000 ML 999 ML IV (03:15)
[2024-08-28 03:16] LABS: Basophils % 0.2 %; Hematocrit 39.9 % (37-53); Lymphocytes # 1.2 10^3/uL (0.8-4.8); Lymphocytes % 22.6 %; Mean Corpuscular HGB Conc 34.8 g/dL (30-55); Mean Corpuscular Hemoglobin 31.3 pg (27-33); Mean Corpuscular Volume 89.9 fl (82-101); Mean Platelet Volume 9.7 fL (7.4-10.4); Monocytes # 0.8 10^3/uL (0.2-0.9); Neutrophils # 3.36 10^3/uL (1.8-7.7); Neutrophils % 62.8 %; Nucleated Red Blood Cells % 0 %; Platelet Count 149 10^3/cmm (157-399); Red Blood Count 4.44 10^6/uL (3.85-5.65); Red Cell Distribution Width 12.5 % (12.1-15.1); White Blood Count 5.35 10^3/uL (3.29-11.43)
[2024-08-28 03:33] LABS: Lactic Sepsis W/Reflex 0.8 mmol/L (0.5-2.2)
[2024-08-28 03:34] LABS: Alanine Aminotransferase 82 U/L (0-41); Albumin Level 3.9 g/dL (3.5-5.2); Alkaline Phosphatase 56 U/L (40-130); Anion Gap 15.7 (5-19); Aspartate Amino Transferase 61 U/L (0-40); Blood Urea Nitrogen 17 mg/dL (6-20); C Reactive Protein 18.9 mg/L (0.0-4.9); Carbon Dioxide 24 mmol/L (22-29); Chloride 98 mmol/L (98-107); Creatinine Clr Calc Pharmacy 86.7925; Globulin 2.8 g/dL (1.3-4.6); Glomerular Filtration Rate 65.3 mL/min (90-130); Glucose 111 mg/dL (65-115); Lipase 33 U/L (13-60); Osmolality Calculated 280 mOsm/kg (285-295); Potassium 3.7 mmol/L (3.5-5.1); Sodium 134 mmol/L (136-145); Total Bilirubin 0.4 mg/dL (0.15-1.2); Total Protein 6.7 g/dL (6.6-8.7)
[2024-08-28 03:58] LABS: Covid PCR NEGATIVE (Negative); Influenza A POSITIVE (Negative); Influenza B NEGATIVE (Negative); Respiratory Syncytial Virus Ce NEGATIVE (Negative)
[2024-08-28 04:06] LABS: Bilirubin Urine Negative (Negative); Blood Urine Negative (Negative); Glucose Urine UA Negative (Normal); Ketones Urine Trace (Negative); Leukocyte Esterase Urine Negative (Negative); Nitrate Urine Negative (Negative); Protein Urine 1+ (Negative); Urine Appearance Clear (CLEAR); Urine Color Yellow (Yellow)
[2024-08-28 04:11] LABS: Add Urine Microscopic? YES; Bacteria Urine None Seen /hpf; Hyaline Casts Urine 1.65 /lpf; Squamous Epithelial Cell Urine 0-5 /hpf (0-5); Universal Test for UA Present (0); WBC Urine 0-5 /hpf (0-5)
[2024-08-28 04:27] VITALS: BP 119/72; PULSE 82; RESP 16; O2SAT 95
[2024-08-28 04:48] LABS: Add Urine Culture? No; Mucus Urine 1+ /hpf; Specific Gravity, Urine 1.035 (1.005-1.030)
== END 2024-08-28 04:28 | disposition home or self-care (01) ==
PROVIDERS: Emergency Provider Emergency Medicine; PCP Family Medicine
DX: J10.1 Influenza due to other identified influenza virus with other respiratory manifestations (principal); Z11.52 Encounter for screening for COVID-19; F17.210 Nicotine dependence, cigarettes, uncomplicated
CPT/HCPCS: 36415; 80053; 81001; 83605; 83690; 85025; 86140; 87637; 96361; 96374; 96375; 99284; J1885; J2405; J7030

== ENCOUNTER 2024-10-13 15:33 | Outpatient (CLI) | payer BC, MEDICAID, SELFPAY | END 2024-10-13 15:34 | disposition home or self-care (01) | LOC: LAB 15:36 | PROVIDERS: PCP Family Medicine; Visit Provider Family Medicine | DX: B19.20 Unspecified viral hepatitis C without hepatic coma (principal) | CPT/HCPCS: 85025 ==

== ENCOUNTER 2024-10-16 09:13 | Outpatient (CLI) | payer BC, MEDICAID, SELFPAY ==
[2024-10-16 10:35] LABS: Basophils % 0.4 %; Eosinophils # 0.1 10^3/uL (0.0-0.8); Eosinophils % 1.9 %; Hematocrit 39.8 % (37-53); Lymphocytes # 2.2 10^3/uL (0.8-4.8); Lymphocytes % 32.7 %; Mean Corpuscular HGB Conc 35.4 g/dL (30-55); Mean Corpuscular Hemoglobin 31.8 pg (27-33); Mean Corpuscular Volume 89.6 fl (82-101); Mean Platelet Volume 9.3 fL (7.4-10.4); Monocytes # 0.6 10^3/uL (0.2-0.9); Monocytes % 8.3 %; Neutrophils % 56.6 %; Nucleated Red Blood Cells % 0 %; Platelet Count 246 10^3/cmm (157-399); Red Blood Count 4.44 10^6/uL (3.85-5.65); Red Cell Distribution Width 13.6 % (12.1-15.1); White Blood Count 6.73 10^3/uL (3.29-11.43)
[2024-10-16 11:11] LABS: Alanine Aminotransferase 184 U/L (0-41); Albumin Level 4.2 g/dL (3.5-5.2); Alkaline Phosphatase 66 U/L (40-130); Anion Gap 11.8 (5-19); Aspartate Amino Transferase 85 U/L (0-40); Blood Urea Nitrogen 16 mg/dL (6-20); Calcium 8.2 mg/dL (8.5-10.5); Carbon Dioxide 26 mmol/L (22-29); Chloride 107 mmol/L (98-107); Cholesterol 119 mg/dL (0-200); Free T4 Free Thyroxine 0.96 ng/dL (0.82-1.77); Globulin 2.7 g/dL (1.3-4.6); Glomerular Filtration Rate 114.3 mL/min (90-130); Glucose 135 mg/dL (65-115); HDL Cholesterol 29 mg/dL (60-100); LDL Cholesterol Calculated 42 mg/dL (50-129); LDL HDL Ratio 1.45 RATIO (0.00-3.22); Osmolality Calculated 295 mOsm/kg (285-295); Potassium 3.8 mmol/L (3.5-5.1); Sodium 141 mmol/L (136-145); Thyroid Stimulating Hormone 4.42 uIU/mL (0.27-4.20); Total Bilirubin 0.3 mg/dL (0.15-1.2); Total Protein 6.9 g/dL (6.6-8.7); Triglycerides 241 mg/dL (0-150)
[2024-10-16 11:15] LABS: Hepatitis A Antibody IgM Non-Reactive (Nonreactive); Hepatitis B Core AB, Total Non-Reactive (Nonreactive); Hepatitis B Surface AB < 3.5 (11.5-1000); Hepatitis B Surface Antigen Non-Reactive (Nonreactive)
[2024-10-16 11:46] LABS: Hepatitis C Virus Antibody Reactive (Nonreactive)
== END 2024-10-16 09:14 | disposition home or self-care (01) ==
PROVIDERS: PCP Family Medicine; Visit Provider Family Medicine
DX: B19.20 Unspecified viral hepatitis C without hepatic coma (principal)
CPT/HCPCS: 36415; 80053; 80061; 84439; 84443; 85025; 86705; 86706; 86709; 86803; 87340; 87522

== ENCOUNTER 2024-10-20 07:46 | Outpatient (CLI) | payer BC, MEDICAID, SELFPAY ==
--- NOTE | 2024-10-20 08:00 | US_ITS ---
WS: [id number] RIGHT UPPER QUADRANT ULTRASOUND HISTORY: hep C COMPARISON: None available. Liver: 15.5 cm in length. Normal size liver and echogenicity. No bile duct dilatation or mass. Portal Vein: Normal hepatopetal flow with monophasic waveform. Gallbladder: Normally distended gallbladder with no stones or wall thickening. CBD: 0.2 cm Pancreas: Body of the pancreas is normal. Head and tail are not visualized and obscured by bowel gas. Right kidney: 9.9 cm in length. Normal size and echogenicity. No hydronephrosis or mass. Aorta and IVC: Unremarkable abdominal aorta and IVC. No ascites. US/US liver [id number] IMPRESSION: 1. Unremarkable ultrasound appearance of the liver. 2. Negative gallbladder.
== END 2024-10-20 07:47 | disposition home or self-care (01) ==
LOC: RAD 07:48
PROVIDERS: PCP Family Medicine; Visit Provider Family Medicine
DX: B19.20 Unspecified viral hepatitis C without hepatic coma (principal)
CPT/HCPCS: 76705

== ENCOUNTER 2025-03-02 10:44 | Emergency (ER) | payer BC, MEDICAID, SELFPAY ==
[2025-03-02 10:46] VITALS: BP 111/76; PULSE 94; RESP 20; TEMP 36.7; O2SAT 98; BMI 33.7
--- OUTSIDE RECORDS SUMMARY | 2025-03-02 10:52 | XMS_ITS | Clinical Summary ---
Author Organization [facility] Address [address] [place] [address] Care Team Providers Care Certified Veterinary Technician Name Role Phone Floresita Luna Frank FOSS Primary Care Provider [phone] Allergies No known active allergies Medications albuterol (VENTOLIN HFA) 90 mcg/Actuation Inhalation HFAAIndications :Asthma Take 1 Puff by inhalation every 4 hours as needed for Wheezing and Shortness of Breath. 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 Gender Identity Not on file Sexual Orientation Not on file Last Filed Vital Signs Vital Sign Reading Time Taken Comments Blood Pressure - - Pulse - - Temperature 36.7 C (98 F) 06/17/2010 3:55 PM BATH MIX OPERATOR Respiratory Rate - - Oxygen Saturation - - Inhaled Oxygen Concentration - - Weight 74.4 kg (164 lb) 06/17/2010 3:55 PM BATH MIX OPERATOR Height - - Body Mass Index - - Plan of Treatment Health Maintenance Due Date Last Done Comments HPV VACCINES (1 - Male 3-dose series) 2009 DTAP/TDAP/TD VACCINES (1 - Tdap) 2013 HEPATITIS B VACCINES (1 of 3 - 19+ 3-dose series) 10/25 INFLUENZA VACCINE (#1) 2025 Insurance [facility] [place] [address] [address] Care Teams Certified Veterinary Technician Relationship Specialty Start Date End Date Floresita Luna DO [address] [place] [address] PCP - General Family Practice 06/10/10
--- NOTE | 2025-03-02 11:14 | W.ED.NAVMDI ---
HPI - Nausea/Vomiting/Diarrhea General: Chief complaint: Nausea/Vomiting/Diarrhea Stated complaint: N/V 3 days Abecss on tale bone Time Seen by Provider: 03/02/25 11:00 History of Present Illness: 29-year-old man with a history of polysubstance abuse including methamphetamine and inhalants, hepatitis C, depression, and asthma who presents emergency room with nausea and vomiting for several days. He says been going on for 3 days. No focal abdominal pain. He says he thinks he may have been vomiting blood when he got here. Also complains of a pilonidal cyst that has been present for some time and has started draining recently. He says he thinks he is dehydrated. Related Data Previous Rx's ?Medication ?Instructions ?Recorded electrolytes, oral (Pedialyte 400 ml PO QID #4,000 mL 12/24/24 Electrolyte Water oral solution) albuterol sulfate 90 mcg/actuation 1 inh inhalation QID PRN shortness 01/15/25 aerosol inhaler of breath or wheezing #6.7 grams hydroxyzine HCl 50 mg tablet 50 mg PO BID #180 tabs 01/15/25 omeprazole 40 mg capsule,delayed 40 mg PO DAILY #60 caps 01/15/25 release ondansetron 8 mg disintegrating 8 mg PO TID PRN nausea and 01/15/25 tablet vomiting #30 tabs metronidazole 500 mg tablet 500 mg PO BID 7 days #14 tabs 02/27/25 sulfamethoxazole 800 1 tab PO BID 7 days #14 tabs 02/27/25 mg-trimethoprim 160 mg tablet (Bactrim DS) clindamycin HCl 300 mg capsule 600 mg (2 x 300 mg) PO Q8H 10 days 03/02/25 #60 caps ondansetron 8 mg disintegrating 8 mg PO Q6H #14 tabs 03/02/25 tablet Allergies Allergy/AdvReac Type Severity Reaction Status Date / Time codeine AdvReac Intermediate ADR-Nausea Verified 01/15/25 14:30 tramadol (From Ultram) AdvReac Intermediate ALGY-Hives Verified 01/15/25 14:30 Review of Systems Narrative: Constitutional symptoms: Negative except as documented in HPI. Skin symptoms: Negative except as documented in HPI. Eye symptoms: Negative except as documented in HPI. ENMT symptoms: Negative except as documented in HPI. Respiratory symptoms: Negative except as documented in HPI. Cardiovascular symptoms: Negative except as documented in HPI. Gastrointestinal symptoms: Negative except as documented in HPI. Genitourinary symptoms: Negative except as documented in HPI. Musculoskeletal symptoms: Negative except as documented in HPI. Neurologic symptoms: Negative except as documented in HPI. Psychiatric symptoms: Negative except as documented in HPI. Endocrine symptoms: Negative except as documented in HPI. PFSH ED PFSH: Medical History (Updated 03/02/25 @ 11:29 by Connie Hatch MD) Inhalant use disorder, mild, in sustained remission Methamphetamine use disorder, severe, in sustained remission, dependence Hepatitis C Moderate major depression Asthma TIA (transient ischemic attack) Psychiatric care Methamphetamine use disorder, severe, dependence Social History Smoking and tobacco/nicotine status: current every day tobacco/nicotine user cigarettes Packs smoked per day: 3 Years cigarettes smoked: 10 [ Other cigarette details: 2PPD, 20PY] and e-cigarettes E-Cigarette Details: e-cigarette and with nicotine E-cig/vape details: Use when regular cigarettes are not available. Quit status (tobacco/nicotine): not considering quitting Second hand smoke exposure: Yes Alcohol intake: never Substance/Drug Use: former Former substance use details: 15 months sober. 08/18. meth, opioids, inhaler Adopted: No Caregiver/support person: No Lives independently: Yes Household members: family Housing: House Marital status: Single Number of children: 2 Highest education level completed: High School Graduate service: No Do you think of yourself as: Straight/Heterosexual Current gender identity: Male Special ella needs: No Physical Exam Narrative: EXAM NARRATIVE: General: Alert, no acute distress. Skin: Warm, dry. Head: Normocephalic, atraumatic. Neck: Supple, trachea midline. Eye: Extraocular movements are intact. Ears, nose, mouth and throat: Tacky oral mucosa Cardiovascular: Regular, Normal peripheral perfusion. Respiratory: Lungs are clear to auscultation, respirations are non-labored, breath sounds are equal, Symmetrical chest wall expansion. Gastrointestinal: Soft, Nontender, Non distended Musculoskeletal: Normal ROM, no deformity. Neurological: Alert and oriented, No focal neurological deficit observed. Psychiatric: Cooperative, appropriate mood & affect. Course Vital Signs: Vital signs: Vital Signs Temperature 98.1 F 08/08/25 10:46 Pulse Rate 68 03/02/25 13:25 Respiratory Rate 19 H 03/02/25 12:10 Blood Pressure 114/69 03/02/25 13:25 Pulse Oximetry 95 03/02/25 13:25 Oxygen Delivery Me thod Room Air 03/02/25 13:00 MDM - Nausea/Vomiting/Diarrhea Medical Decision Making Medical decision making: Differential diagnosis for this patient with nausea and vomiting including but not limited to and based on the above HPI, review of systems and physical exam: Urinary tract infection. Appendicitis. Cholecystitis. Colitis. small bowel obstruction. crohn's flare. pancreatitis. gastritis. peptic ulcer. cyclic vomiting. Viral illness. Influenza. COVID. Orders placed to evaluate differential diagnosis based on the above differential, HPI and physical exam Lab Review: Laboratory results were reviewed and interpreted by myself the emergency room physician. No leukocytosis. No anemia. Lipase is negative. Lactic acid is negative. Liver enzymes are slightly elevated. I reviewed the patient's medical record. 29-year-old man with a history of polysubstance abuse including methamphetamine and inhalants, hepatitis C, depression, and asthma Reexamination: Patient is now tolerating p.o. No abdominal pain. No altered mental status. He has not vomited since has been here. Assessment and plan: Gastroenteritis Pilonidal cyst Dehydration ?IV fluids, IV Zofran. - Discharged home - Discussed plan with patient. Answered any questions. - Evaluation and treatment of this problem were appropriate in the emergency setting. Lab Data 03/02/25 12:04 03/02/25 12:04 Laboratory Results WBC 7.01 10^3/uL (3.29-11.43) 03/02/25 12:04 RBC 4.82 10^6/uL (3.85-5.65) 03/02/25 12:04 Hgb 15.10 g/dL (11.27-16.99) 03/02/25 12:04 Hct 42.6 % (37-53) 03/02/25 12:04 MCV 88.4 fl (82-101) 03/02/25 12:04 MCH 31.3 pg (27-33) 03/02/25 12:04 MCHC 35.4 g/dL (30-55) 03/02/25 12:04 RDW 12.3 % (12.1-15.1) 03/02/25 12:04 Plt Count 293 10^3/cmm (157-399) 03/02/25 12:04 MPV 9.1 fL (7.4-10.4) 03/02/25 12:04 Neut % (Auto) 59.7 % 03/02/25 12:04 Lymph % (Auto) 28.8 % 03/02/25 12:04 [place] % (Auto) 9.3 % 03/02/25 12:04 Eos % (Auto) 1.3 % 03/02/25 12:04 Baso % (Auto) 0.6 % 03/02/25 12:04 Neut # (Auto) 4.19 10^3/uL (1.8-7.7) 03/02/25 12:04 Lymph # (Auto) 2.0 10^3/uL (0.8-4.8) 03/02/25 12:04 [place] # (Auto) 0.7 10^3/uL (0.2-0.9) 03/02/25 12:04 Eos # (Auto) 0.1 10^3/uL (0.0-0.8) 03/02/25 12:04 Baso # (Auto) 0.0 10^3/uL (0.0-0.1) 03/02/25 12:04 Nucleated RBC % (auto) 0 % 03/02/25 12:04 Nucleated RBCs # 0.0 /100WBC 03/02/25 12:04 Sodium 143 mmol/L (136-145) 03/02/25 12:04 Potassium 3.9 mmol/L (3.5-5.1) 03/02/25 12:04 Chloride 104 mmol/L (98-107) 03/02/25 12:04 Carbon Dioxide 24 mmol/L (22-29) 03/02/25 12:04 Anion Gap 18.9 (5-19) 03/02/25 12:04 BUN 22 mg/dL (6-20) H 03/02/25 12:04 Creatinine 1.4 mg/dL (0.7-1.2) H 03/02/25 12:04 GFR Calculation 59.5 mL/min (90-130) L 03/02/25 12:04 Glucose 95 mg/dL (65-115) 03/02/25 12:04 Calculated Osmolality 299 mOsm/kg (285-295) H 03/02/25 12:04 Lactic Acid 1.8 mmol/L (0.5-2.2) 03/02/25 12:04 Calcium 9.3 mg/dL (8.5-10.5) 03/02/25 12:04 Total Bilirubin 0.7 mg/dL (0.15-1.2) 03/02/25 12:04 AST 59 U/L (0-40) H 03/02/25 12:04 ALT 112 U/L (0-41) H 03/02/25 12:04 Alkaline Phosphatase 78 U/L (40-130) 03/02/25 12:04 Total Protein 8.0 g/dL (6.6-8.7) 03/02/25 12:04 Albumin 4.3 g/dL (3.5-5.2) 03/02/25 12:04 Globulin 3.7 g/dL (1.3-4.6) 03/02/25 12:04 Lipase 16 U/L (13-60) 03/02/25 12:04 No radiology studies performed this visit Discharge Plan Discharge Patient Disposition: Home Clinical Impression: Gastroenteritis, Dehydration, Pilonidal cyst Condition: Stable Prescriptions: New clindamycin HCl 300 mg capsule 600 mg PO Q8H 10 Days Qty: 60 0RF ondansetron 8 mg tablet,disintegrating 8 mg PO Q6H Qty: 14 0RF Rx Instructions: Take 1/2-1 tab every 6 hours as needed for nausea and vomiting No Action Pedialyte Electrolyte Water Solution 400 ml PO QID Qty: 4000 0RF metronidazole 500 mg tablet 500 mg PO BID 7 Days Qty: 14 0RF sulfamethoxazole-trimethoprim [Bactrim DS] 800-160 mg tablet 1 tab PO BID 7 Days Qty: 14 0RF omeprazole 40 mg capsule,delayed release(DR/EC) 40 mg PO DAILY Qty: 60 1RF ondansetron 8 mg tablet,disintegrating 8 mg PO TID PRN (Reason: nausea and vomiting) Qty: 30 0RF hydroxyzine HCl 50 mg tablet 50 mg PO BID Qty: 180 1RF albuterol sulfate 90 mcg/actuation HFA aerosol inhaler 1 inh inhalation QID PRN (Reason: shortness of breath or wheezing) Qty: 6.7 4RF Discharge Orders: Discharge ED (Routine); Ordered 03/02/25 Ordered By: Connie Hatch Referrals: Joshua Moore MD [Physician, General Surgery] - 1-3 days Referral Note: Please call for a follow-up appointment for your pilonidal cyst Keven Mota MD [Primary Care Provider, [facility]] Discharge Diet: Advance as tolerated Discharge Activity: Increase activity as tolerated Patient Instructions: Acute Nausea and Vomiting (ED), Opioid Safety, Pain Management, Patient Portal & Alondra Instructions Activity Restrictions/Additional Instructions: Change antibiotics from Bactrim to clindamycin or continue what you are on and talk with your primary care provider. Arrange for follow-up with general surgery for the pilonidal cyst. Thank you for choosing [facility] for your healthcare needs today. You have been screened and evaluated and felt safe for discharge. Health conditions do change or evolve sometimes and as such it is important that you follow up with your Primary Doctor to be re checked, 3-5 days is a general good time frame for follow up. You are always welcome to return to the ED for re assessment if your symptoms are worsening or you have new concerns Print Language: [place] Verdean Coding Level of Care Code ED Landfill Gas Technician for Joann Lin
[2025-03-02] MEDS: ondansetron 2 mg/ML SDV 2 mL 8 MG IVP (12:07)
[2025-03-02 12:09] LABS: Hematocrit 42.6 % (37-53); Hemoglobin 15.10 g/dL (11.27-16.99); Mean Corpuscular HGB Conc 35.4 g/dL (30-55); Mean Corpuscular Hemoglobin 31.3 pg (27-33); Mean Corpuscular Volume 88.4 fl (82-101); Nucleated Red Blood Cells % 0 %; Platelet Count 293 10^3/cmm (157-399); Red Blood Count 4.82 10^6/uL (3.85-5.65); White Blood Count 7.01 10^3/uL (3.29-11.43)
[2025-03-02 12:10] VITALS: BP 117/89; PULSE 84; RESP 19; O2SAT 96
[2025-03-02 12:33] LABS: Lactic Sepsis W/Reflex 1.8 mmol/L (0.5-2.2)
[2025-03-02 12:34] LABS: Albumin Level 4.3 g/dL (3.5-5.2); Alkaline Phosphatase 78 U/L (40-130); Anion Gap 18.9 (5-19); Calcium 9.3 mg/dL (8.5-10.5); Carbon Dioxide 24 mmol/L (22-29); Chloride 104 mmol/L (98-107); Globulin 3.7 g/dL (1.3-4.6); Glucose 95 mg/dL (65-115); Lipase 16 U/L (13-60); Potassium 3.9 mmol/L (3.5-5.1); Sodium 143 mmol/L (136-145); Total Protein 8.0 g/dL (6.6-8.7)
[2025-03-02 12:51] LABS: Blood Urea Nitrogen 22 mg/dL (6-20); Osmolality Calculated 299 mOsm/kg (285-295)
[2025-03-02 12:52] LABS: Alanine Aminotransferase 112 U/L (0-41); Aspartate Amino Transferase 59 U/L (0-40); Creatinine Clr Calc Pharmacy 80.4611
--- NOTE | 2025-03-02 12:59 | PC.NURSE ---
Per Dr. Mamie nix UA, PO challenge, pt given sandwich crackers sprite. PT voiced feeling better.
[2025-03-02 13:00] VITALS: BP 116/69; PULSE 82; O2SAT 94
--- NOTE | 2025-03-02 13:24 | PC.NURSE ---
pt tolerated po challenge w/o difficulty. Pt had no nausea no vomitting.
[2025-03-02 13:25] VITALS: BP 114/69; PULSE 68; O2SAT 95
== END 2025-03-02 13:26 | disposition home or self-care (01) ==
PROVIDERS: Emergency Provider Emergency Medicine; PCP Family Medicine
DX: L05.91 Pilonidal cyst without abscess (principal); K52.9 Noninfective gastroenteritis and colitis, unspecified; E86.0 Dehydration; F17.210 Nicotine dependence, cigarettes, uncomplicated; Z86.73 Personal history of transient ischemic attack (TIA), and cerebral infarction without residual deficits
CPT/HCPCS: 36415; 80053; 83605; 83690; 85025; 96361; 96374; 99284; J2405; J7030